=== PATIENT | male | born 1940 | race Caucasian/White ===

== ENCOUNTER 2020-03-10 11:22 | Inpatient (IN) | payer OTHER ==
[~2020-03-10] VITALS: Ht 193 cm; Wt 113.4 kg
--- NOTE | ~2020-03-10 | CON ---
[address] [address] CONSULTATION Name: YOONLINDA Mariann Room: [address] IN .R.#: [id number] Admission: 03/10/20 Attend Phys: Schuyler Kim MD Discharge: Date of : 44 Report #: [id number] THIS REPORT FOR: //name// cc: Kumar Alcantar MD, Anthony MD ~ THIS REPORT FOR: //name// CC: Kumar Vernon DATE OF SERVICE: 03/22/2020 CHIEF COMPLAINT: Followup of postoperative wound to the left lateral foot and right plantar fifth metatarsal styloid. Surgical pathology showed osteomyelitis with clear resection and clear disarticulation margin. He is on parenteral vancomycin 1 gram q.12h. He feels well, good appetite. He is nonweightbearing to the left foot, although he does place some weight to it for transfers. Two surgical shoes have been dispensed. No new labs for review. PHYSICAL EXAMINATION: Incision is well approximated to the left lateral foot with increased red granulation to the postoperative wound. Low-grade inflammation to the hindfoot, which shows interval improvement. No underlying fluctuance or crepitation noted. No signs of acute vascular embarrassment to either foot. The right plantar foot wound has some fibrous slough to the wound bed with some visible tendon fibers. No inflammation or cardinal signs of infection. IMPRESSION: Osteomyelitis with deep tissue infection, status post surgical debridement, type 2 diabetes mellitus/peripheral artery disease. PLAN: Both wounds were cleansed and dressed with Aquacel Ag, ABDs, Kerlix and Rickie wrap. The patient will require some bedside debridement to the right plantar wound. He is awaiting usp placement. By: [id number] [id number] Jacques DPM /nt
[2020-03-10 10:25] LABS: HEMATOCRIT 33.9 % (42.0-52.0); HEMOGLOBIN 11.1 gm/dL (14.0-18.0); MCHC 32.7 g/dL (28.0-37.0); MCV 82.7 fL (80.0-100.0); MPV 7.9 fl. (7.2-11.1); NUCLEATED RBCS 0 /100WBC; PLATELET COUNT* 459 thou/uL (150-400); RDW-CV 14.6 % (10.5-14.5); WBC 21.5 thou/uL (4.0-11.0)
[2020-03-10 10:35] LABS: CALCIUM 8.5 mg/dL (8.5-10.1); CREATININE 1.9 mg/dL (0.6-1.3); POTASSIUM 4.3 mmol/L (3.5-5.1)
[2020-03-10 10:37] LABS: ALBUMIN 2.5 g/dL (3.4-5.0); TOTAL BILIRUBIN 0.5 mg/dL (<0.1-1.0); TOTAL PROTEIN 7.6 g/dL (6.4-8.2)
[2020-03-10 10:50] LABS: ABSOLUTE LYMPHOCYTES 1.3 thou/uL (0.8-5.3); ABSOLUTE MONOCYTES 1.3 thou/uL (0.0-1.2); ABSOLUTE NEUTROPHILS 18.9 thou/uL (1.6-8.1); METAMYELOCYTES 1 %
[2020-03-10 10:52] LABS: PLATELET ESTIMATE INCREASED
[~2020-03-10 11:22] MED LIST: METFORMIN 500500 MG PO; NORCO 5-325 TA1 EACH PO; PROZAC 10 MG CA10 MG PO
[2020-03-10 11:28] VITALS: BP 146/59
[2020-03-10 11:29] LABS: ESR (SEDRATE) 106 mm/hr (0-20)
[2020-03-10] MEDS ORDERED: DRIZALMA SPRINK60 MG PO (11:35)
[2020-03-10] MEDS ORDERED: FUROSEMIDE 40 M40 MG PO (11:35)
[2020-03-10] MEDS ORDERED: AMARYL2 M1 PO (11:35)
[2020-03-10] MEDS ORDERED: EZALLOR SPRINKL10 MG PO (11:36)
[2020-03-10] MEDS ORDERED: CARVEDILOL12.5 MG PO (11:36)
[2020-03-10] MEDS ORDERED: ASA81BEC PO (11:36)
[2020-03-10] MEDS ORDERED: LORCET 5-325 M1 EACH PO (11:37)
[2020-03-10] MEDS ORDERED: ZOFRAN4 MG PO (11:37)
[2020-03-10] MEDS ORDERED: MUPIROCIN1 GM TOP (11:38)
[2020-03-10] MEDS ORDERED: AUGMENTIN 500-1 EACH PO (11:38)
[2020-03-10 13:56] LABS: APTT 36.4 Seconds (25.0-31.3); INR 1.1; PROTIME 11.4 Seconds (9.20-11.50)
--- NOTE | 2020-03-10 17:26 | EKG ---
[place] [address] ELECTROCARDIOGRAM REPORT Name: LINDA NETTLES Room: [place] [address] ADM IN [facility]#: [id number] Admission: 03/10/20 Attend Phys: Schuyler Kim, Discharge: Date of : 44 Date of Service: 03/10/20 1230 Report #: [id number] THIS REPORT FOR: //name// [facility] ED Test Date: 2020-03-10 Test Time: 12:30:36 Pat Name: LINDA NETTLES Department: Room: [facility] Gender: M [employer] Weaver: CYNTHIA : 1940 Requested By: Cuca Martinez Order Number: [id number] MD: Carlos Higuera Measurements Intervals Pierce Rate: 103 P: 100 CO: 190 QRS: 12 QRSD: 97 T: 5 QT: 344 QTc: 451 Interpretive Statements Sinus tachycardia Inferior infarct, old No previous ECG available for comparison Electronically Signed On 03-10-2020 17:26:07 CDT by Carlos Higuera [email or web address] <ELECTRONICALLY SIGNED> By: Carlos Higuera MD, [facility] 03/10/20 1726 1230 1230 Carlos Higuera MD, [facility] /EPI
[2020-03-10 19:40] VITALS: BP 149/64
[2020-03-10 20:30] VITALS: BP 131/48
[2020-03-11 02:36] LABS: GLYCOHEMOGLOBIN (HGB A1C) 7.5 % (4.8-5.6)
[2020-03-11 04:28] LABS: CALCIUM 7.8 mg/dL (8.5-10.1); CREATININE 2.3 mg/dL (0.6-1.3); MAGNESIUM 1.9 mg/dL (1.8-2.4); POTASSIUM 4.1 mmol/L (3.5-5.1)
[2020-03-11 04:31] LABS: HEMATOCRIT 30.3 % (42.0-52.0); HEMOGLOBIN 10.1 gm/dL (14.0-18.0); MCH 27.4 pg (26.0-34.0); MCHC 33.4 g/dL (28.0-37.0); MCV 82.2 fL (80.0-100.0); MPV 7.7 fl. (7.2-11.1); RBC 3.69 mil/uL (4.50-6.00); RDW-CV 14.6 % (10.5-14.5); WBC 18.4 thou/uL (4.0-11.0)
--- NOTE | 2020-03-11 05:35 | NUR ---
PT ARRIVED AROUND 2014. A&O X4. VSS ON RA. PHOTO OF LT FOOT TAKEN. DRESSING DONE BY ER NURSE. PT USES URINAL TO VOID. MEDS GIVEN ORDERED. PAIN MANAGED WITH SCHEDULED HYDROCODONE. MG REPLACED. PT SLEEPING/RESTING QUIETLY THROUGH THE NIGHT. CALL LIGHT WITHIN REACH. WILL CONTINUE TO MONITOR.
[2020-03-11 09:56] VITALS: BP 124/52
[2020-03-11 15:48] VITALS: BP 135/54
--- NOTE | 2020-03-11 16:27 | NUR ---
ASSUMED CARE OF PT AROUND 0730 THIS AM. REFER TO ASSESSMENT. PT GIVEN PRUNE JUICE THIS AM FOR CONSTIPATION. PT OFFERED SCHEDULED SENNA AND PRN MILK OF MAG AND REFUSED STATING THE PRUNE JUICE EFFECTIVE. PT HAD MRI THIS SHIFT. ANTICIPATE SURGERY WITH DR. DIANA TOMORROW. PT GIVEN HYDROCODONE FOR PAIN AND REPORTS EFFECTIVE. NO OTHER CONCERNS AT THIS TIME. CLWR. WCTM.
[2020-03-11 16:47] LABS: URINE BILIRUBIN NEGATIVE (Negative); URINE BLOOD NEGATIVE (Negative); URINE CLARITY CLEAR; URINE COLOR YELLOW; URINE GLUCOSE-RANDOM NEGATIVE (Negative); URINE KETONES NEGATIVE (Negative); URINE LEUKOCYTES-REFLEX NEGATIVE (Negative); URINE NITRITE-REFLEX NEGATIVE (Negative); URINE PROTEIN 1+ (Negative); URINE UROBILINOGEN 0.2 E.U./dl (0.2-1.0)
[2020-03-11 17:03] LABS: URINE POTASSIUM-RANDOM 40.3 mmol/L
[2020-03-11 20:00] VITALS: BP 168/75; BP 172/78
[2020-03-11 23:29] VITALS: BP 172/78
[2020-03-12 05:15] VITALS: BP 142/62
--- NOTE | 2020-03-12 05:23 | NUR ---
PT SLEPT WELL THIS SHIFT AFTER HS MEDS. USING URINAL AT BEDSIDE. DRSG TO TANYA FEET CHANGED AT HS. HS ACCUCHECK 230, INSULIN GIVEN ORDERED. LAC SL IV, ABX GIVEN ORDERED. HAS BEEN NPO SINCE MIDNIGHT FOR DEBRIDEMENT THIS MORNING BY DR FOUNTAIN. AM LAB LACTIC WNL. CARVEDILOL GIVEN PHYSICAL DAMAGE APPRAISER WITH SMALL SIP WATER. CALL LITE IN EASY REACH, BED ALARM ON FOR SAFETY.
[2020-03-12 08:00] VITALS: BP 130/58
--- NOTE | 2020-03-12 09:28 | NUR ---
PT TO OR AT THIS TIME
--- NOTE | 2020-03-12 11:30 | NUR ---
I was called and notified patient had expressed a desire to . I spoke with the patient, and he expressed hopelessness. 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 He talked about how his was his only family member and they didn't have anyone else. He stated that the guns are out of the house. He said he is his 's caregiver, and he can't care for her due to his illness right now, causing more hopelessness. Chen KULKARNI called to do a well check on . Attempted to get telepsych consult preoperatively but unable to complete it before scheduled time of surgery. rn notified to complete 24 hours after anesthesia. Affidavit completed by myself, as well as PACU RNs
--- NOTE | 2020-03-12 14:13 | NUR ---
ASSUMED CARE OF PT AROUND 0730 THIS AM. REFER TO ASSESSMENT. PT NPO THIS AM FOR SURGERY. DR DIANA COMPLETED SURGERY. REFER TO PROCEDURE NOTES. WHEN IN PACU, PT VOICED SUICIDAL IDEAS. PACU NURSES AND PROPELLANT CHARGE ZONE ASSEMBLER TO COMPLETE AFFIDAVITS TO PLACE ON CHART. PT TO HAVE TELE-PSYCH COMPLETED 24 HOURS AFTER SURGERY D/T ANESTHESIA. PT ON 1:1 OBSERVATION FOR SAFETY. BELONGINGS CHECKED IN WITH SECURITY. PT HAS NO C/O PAIN POST OP AT THIS TIME. CLWR. WCTM.
[2020-03-12 15:00] VITALS: BP 116/42
[2020-03-12 20:40] VITALS: BP 132/48
--- NOTE | 2020-03-13 04:40 | NUR ---
ASSUMED CARE AT 1920h, ON NC AT 2LPM AND TOLERATED. SEEN ON BED CALM AND SOME TIMES INAPPROPRIATE. WITH SITTER FOR SI. WITH DRY DRESSING ON BOTH FEET. NO DISTRESS AND NO BLEEDING. FOR TELE PSYCH CONSULT TODAY. CONTINUE MONITORING AND TOWARD GOALS.
[2020-03-13 05:50] LABS: HEMATOCRIT 28.3 % (42.0-52.0); HEMOGLOBIN 9.6 gm/dL (14.0-18.0); MCH 27.4 pg (26.0-34.0); MCHC 33.7 g/dL (28.0-37.0); MCV 81.3 fL (80.0-100.0); MPV 7.7 fl. (7.2-11.1); RBC 3.49 mil/uL (4.50-6.00); RDW-CV 14.9 % (10.5-14.5); WBC 17.6 thou/uL (4.0-11.0)
[2020-03-13 06:06] LABS: CALCIUM 7.6 mg/dL (8.5-10.1); CREATININE 1.9 mg/dL (0.6-1.3); MAGNESIUM 2.3 mg/dL (1.8-2.4); POTASSIUM 4.3 mmol/L (3.5-5.1)
[2020-03-13 08:40] VITALS: BP 155/71
--- NOTE | 2020-03-13 15:51 | NUR ---
CM SPOKE TO THE PT TO DISCUSS HIS HOME SITUATION, AND DISCHARGE PLANNING. PT A&O AND INFORMS THAT HE IS NORMALLY INDEPENDENT, ACTIVE, AND DRIVES. PT RESIDES AT HOME WITH HIS SPOUSE, BUT 'SHE IS NOT IN [facility]'. PT USES A ROLLER WALLKER FOR MOBILITY. PT HAS A HX OF SNF AFTER A SX. PT IS CURRENTLY ON-SERVICE WITH [facility] FOR HH. CM [facility]KE [facility] AND THEY INFORM THAT THE PT WAS 'SCHEDULED TO BE SEEN TODAY, AND WILL NEED ORDERS FOR HH AT D/C TO START HH TODAY WAS THE FIRST SCHEDULED VISIT'. PT CURRENTLY HAS A 1:1 SITTER, HE MADE MULTIPLE SUICIDAL COMMENTS TO NURSING STAFF. PT CURRENTLY AWAITNG TELE PSYCH EVAL. CM WILL REMAIN AVAILABLE TO ASSIST AND FOLLOW NEEDED.
--- NOTE | 2020-03-13 17:20 | NUR ---
PATIENT ALERT AND ORIENTED X 4. VITAL SIGNS STABLE ON ROOM AIR. PATIENT UP WITH STAND BY ASSIST TO THE BATHROOM. IV PATENT AND SALINE LOCKED. ANTIBIOTICS GIVEN PER OCT. PAIN BEING MANAGED WITH PO MEDICATION. DENIES NAUSEA AT THIS TIME. 1:1 SITTER AT BEDSIDE. HOURLY ROUNDS MAINTAINED THROUGHOUT THE SHIFT. CALL LIGHT WITHIN REACH. NURSING WILL CONTINUE TO MONITOR.
[2020-03-13 19:34] VITALS: BP 150/67
--- NOTE | 2020-03-14 04:36 | NUR ---
ASSUMED PATIENT CARE AT 1900. PATIENT ALERT AND ORIENTED TIMES FOUR AT BEGINNING OF SHIFT. SOMEWHAT CONFUSED AND CONFRONTATIONAL WHEN AROUSED THROUGH THE NIGHT. NO COMPLAINTS OF PAIN OR DISCOMFORT NOTED. IV PATENT. 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
[2020-03-14 08:10] VITALS: BP 143/65
--- NOTE | 2020-03-14 12:18 | NUR ---
Nutrition: Pt admitted with Lt foot ulcer, seen for same. Pt is noted to be sometimes inappropriate. Has 1:1 sitter. Wt: 250#. RX: insulin, glimeperide. Behavioral health tray ordered. Labs: BG 177-219, alb 2.5, prealb 5.8, WBC 17.6. RD ordered Ehsan to aid in wound healing. No education given at this time. Consider Mild risk. GOALS: >75% meals/supplements consumed, tight BG control for wound healing.
--- NOTE | 2020-03-14 14:32 | NUR ---
WOUND NURSE: PATIENT SEEN, BUT FOOT WOUNDS NOT ADDRESSED THESE ARE BEING MANAGED BY DR. Angeles FOUNTAIN DPM. PATIENT APPARENTLY TRANSFERED HIMSELF FROM CHAIR TO BED WITHOUT REQUESING NURSIN ASSISTANCE. PATIENT WAS INSTRUCTED TO REQUEST NURSING ASSISTANCE WITH ALL TRANSFERS IN AND OUT OF BED AND TO FOLLOW PHYSICAL THERAPIST'S INSTRUCTIONS PERTAINING TO MOBILITY. PATIENT STATES HE UNDERSTANDS, BUT FOLLOW UP INSTRUCTION WILL BE NECESSARY.
--- NOTE | 2020-03-14 16:10 | NUR ---
CM SPOKE TO THE PT TO DISCUSS DISCHARGE PLANNING NEEDS AND SNF AT D/C. PT STATES 'I DO NOT WANT TO GO TO A HALF-WAY'. DESPITE EDUCATION AND ENCOURAGEMENT, PT CONTINUED TO DECLINE SNF. PT IN AGREEMENT WITH GOING HOME WITH HH AT D/C AND HAD BEEN SETUP WITH [facility] PRIOR TO ADMIT, BUT WILL NEED NEW HH ORDERS FOR HH AT D/C. CM WILL REMAIN AVAILABLE TO ASSIST AND FOLLOW NEEDED.
[2020-03-14 16:20] VITALS: BP 171/70
--- NOTE | 2020-03-14 18:42 | NUR ---
PT AOx4 FORGETFUL AT TIMES. PT RECEIVING IV ANTIBIOTICS AND TOELRATING WELL. WOUND CARE IS MONITORING PT WOUNDS AND DRESSINGS. PT IS NWB TO LLE, WBAT C POSTOP SHOE IN PLACE. PT IS UP WITH ASSIST X2, DOES NOT MAINTAIN WB STATUS. VSS. NO ACUTE EVENTS THIS SHIFT WILL CONTINUE TO MONITOR
[2020-03-14 20:30] VITALS: BP 144/65
--- NOTE | 2020-03-15 07:02 | NUR ---
Oriented x 3 he is forgetful and sometimes withdrawn. He was up to the bedside commode and didn't do well with staying NWB to L foot,dressing is intact. He refused scheduled pain meds. He has slept well.
[2020-03-15 08:00] VITALS: BP 162/71
--- NOTE | 2020-03-15 14:47 | NUR ---
CM INFORMED BY THE HOSPITALIST THAT THE PT WILL NEED IV ABT'S AT D/C. CM SPOKE TO THE PT TO DISUCSS THIS AND HE REQUEST TO DO IV ABT'S AT HOME. PT APPROVES REFERRAL BEING SENT TO [facility]. [facility] RETURNS CALL TO INFORM OF PT'S BENEFITS AND CO-PAY OF $1186/WK FOR BOTH ABT'S, $5900 OOP W/ $87 MET, AND ONLY SUPPLIES WILL BE COVERED AT 100%. CM RELAYED THIS INFO TO PT. PT UPSET AND INFORMS THAT HE IS UNABLE TO AFFORD THIS. PT AGAIN DECLINED SNF AN OPTION FOR PT/OT AND ABT'S. CM INFORMED RN IN-CHARGE OF THE PT OF ALL OF THE ABOVE INFO, AND WILL SPEAK TO THE HOSPITALIST TO DISCUSS OTHER OPTIONS. CM WILL REMAIN AVAILABLE TO ASSIST AND FOLLOW NEEDED.
[2020-03-15 15:17] VITALS: BP 116/65
[2020-03-15 16:08] VITALS: BP 116/65
--- NOTE | 2020-03-15 19:22 | NUR ---
PATIENT RESTIGN IN BED. PATIENT HAD COMPLAINTS OF LEFT FOOT PAIN X 1 TODAY. PATIENT SEEN BY DR FOUNTAIN THIS AFTERNOON AND WOUND DRESSINGS CHANGED TO BILATERAL FEET. PATIENT HAD PICC LINE PLACED THIS AFTERNOON FOR IV ANTIBIOTICS AT DISCHARGE. PATIENT HAS GOOD APPETITE. PATIENT DENIES ANY NEEDS AT THIS TIME.
[2020-03-15 19:30] VITALS: BP 139/56
--- NOTE | 2020-03-16 06:58 | NUR ---
Pt alert and oriented. VSS on RA Meds given per emar. Pt refused pain meds this shift. Pt denies pain meds. Pt voiced that he was ok now becuase Dr Jacques told him that wounds were healing. Lantus given this shift as ordered. Pt slept well this shift. Call light within reach. Hourly roundings made. Anticipated dc today. Will continue to monitor.
[2020-03-16 07:40] VITALS: BP 159/71
--- NOTE | 2020-03-16 08:40 | PATH ---
[address] [address] PATHOLOGY RPT PROCEDURE Name: LINDA NETTLES Room: [address] IN ..#: [id number] Admission: 03/10/20 Date of : 44 Discharge: Report #: [id number] Path Case #: [id number] [facility] Accession Number: [id number] . 01 Material submitted: . foot - LEFT 5TH METARSAL. Modifiers: left, fifth . 01 Clinical history: . Foot ulcer and pain . 02 Diagnosis: Left fifth metatarsal: - Benign osteocartilaginous segment with acute inflammation of attached soft tissues and prominent osteomyelitis near "smooth/flat" articular end, with opposite articular end free of osteomyelitis. See comment. (NAEL:cory; 03/14/2020) S 03/14/2020 1346 Local . 02 Comment: Osteomyelitis is identified near an articular surface in A1, without traversing it. (NAEL:cory; 03/14/2020) . 02 Electronically signed: . Rafiq Bess MD, Pathologist NPI- [id number] . 01 Gross description: . The specimen is received in formalin, labeled "Linda Nettles, Nick fifth metatarsal" and consists of a segment of bone measuring 8.2 x 1.8 x 1.4 cm. One aspect is smooth and flat with a possible partial articular surface, while the other is a convex smooth articular surface. Sectioning reveals yellow-whitten cut surfaces. A full-thickness longitudinal section is submitted from the flat aspect to the convex aspect in A1-A4 following decalcification. (SDY; 03/13/2020) SYU/SYU 03/14/2020 1344 Local . 02 Pathologist provided ICD-10: M79.9, M86.172 . 02 CPT . 229098, 140322 Specimen Comment: A courtesy copy of this report has been sent to [phone] Specimen Comment: Report sent to Specimen Comment: A duplicate report has been generated due to demographic updates. Performed at: [address] [place] [address] PATHOLOGY RPT PROCEDURE Name: LINDA NETTLES Room: [address] IN .R.#: [id number] Admission: 03/10/20 Date of : 44 Discharge: Report #: [id number] Path Case #: [id number] [facility] [address], [place], [place] [id number] MD Frank Muro MD Phone: [phone] Performed at: [address] [facility] [address] [place] [id number] MD Rafiq Bess MD Phone: [phone]
[2020-03-16 16:23] VITALS: BP 154/65
--- NOTE | 2020-03-16 17:48 | NUR ---
PATIENT RESTING IN BED. PATIENT DENIES ANY PAIN. PATIENT HAS FAIR APPETITE. PATIENT IS UP TO COMMODE WITH STANDBY ASSIST. PATIENT DISCHARGE IS PENDING ANTIBIOTICS AND PLACEMENT, PATIENT STATES UNDERSTANDING TO TREATMENT. PATIENT WANTS TO GO HOME. PATIENT DENIES ANY NEEDS AT THIS TIME. CALL LIGHT WITHIN REACH.
[2020-03-16 20:00] VITALS: BP 163/69
[2020-03-17 04:00] VITALS: BP 152/65
[2020-03-17 07:50] VITALS: BP 161/66
[2020-03-17 15:30] VITALS: BP 176/74
[2020-03-17] MEDS ORDERED: DAPTOMYCIN500 MG IVPB (15:30)
[2020-03-17] MEDS ORDERED: ERTAPENEM1 GM IVPB (15:30)
[2020-03-17] MEDS ORDERED: LANTUS SUBQ (15:33)
[2020-03-17] MEDS ORDERED: HUMALOG100 UNIT/1 SUBQ (15:36)
--- NOTE | 2020-03-17 15:49 | NUR ---
CM INFORMED THAT THE PT HAS BEEN MEDICALLY ACCEPTED BY THE PHYSICIAN TO THE INPT REHAB UNIT. WET CHAR CONVEYOR TENDER IN THE PROCESS OF OBTAIN INSURANCE AUTH. CM INFORMED THE PT OF THIS AND HE IS IN AGREEMENT. CM WILL REMAIN AVAILABLE TO ASSIST AND FOLLOW NEEDED.
--- NOTE | 2020-03-17 18:03 | NUR ---
PATIENT DRESSINGS CHANGED TO TANYA FEET BY DR. FOUNTAIN. SCHED IV ABX INFUSED ORDERED. HYDROCODONE GIVEN X 1 FOR FOOT PAIN THIS SHIFT ORDERED. AWAITING INSURANCE AUTH FOR REHAB.
[2020-03-17 20:20] VITALS: BP 165/66
--- NOTE | 2020-03-18 04:29 | NUR ---
PATIENT HAS REMAINED ALERT AND ORIENTED X 4. CALLS FOR ASSIST. BEDREST TONIGHT. USING URINAL. NO BM'S THIS SHIFT. ANTIBIOTICS PER PICC. VITAL SIGNS STABLE. DRESSING BILAT FEET CLEAN AND DRY, ELEVATED WITH PILLOWS. CONTINUE TO MONITOR.
[2020-03-18 08:10] VITALS: BP 176/76
[2020-03-18 16:00] VITALS: BP 178/83
--- NOTE | 2020-03-18 17:26 | NUR ---
PATIENT RESTING IN BED. PATIENT HAS HAD FLAT AFFECT TODAY. PATIENT HAS SLEPT ON AND OFF THROUGHOUT DAY. PATIENT HAS POOR APPETITE. PATIENT DENIES ANY PAIN. DRESSING TO BILATERAL FEET C/D/I. PATIENT DENIES ANY NEEDS AT THIS TIME. CALL LIGHT WITHIN REACH.
[2020-03-18 22:00] VITALS: BP 148/60
--- NOTE | 2020-03-19 07:04 | NUR ---
PATIENT HAS RESTED WELL THROUGHOUT THE NIGHT. VSS ON RA. PAIN CONTROLLED VERY WELL. MEDICATIONS GIVEN ORDERED AND CHARTED. DRESSINGS TO BILATERAL LOWER EXTREMITIES ARE C/D/I. RIGHT UPPER ARM PICC-SL. IV IN RIGHT FOREARM-SL. IV ABT'S GIVEN WITHOUT ANY ADVERSE SIDE EFFECTS NOTED. PATIENT INSTRUCTED TO USE CALL LIGHT WHEN NEEDING ASSISTANCE. HOURLY ROUNDS MADE. WILL CONTINUE WITH PLAN OF CARE AND NURSING TO MONITOR.
[2020-03-19 07:20] VITALS: BP 174/81
--- NOTE | 2020-03-19 16:51 | NUR ---
PT REMAINED ALERT AND ORIENTED. PT RESTING IN BED. PT DENIED ANY PAIN. DRESSING CHANGED AND PICTURES. TAKEN. FALL RISK PRECAUTIONS IN PLACE. HOURLY ROUNDING COMPLETED. WILL CONTINUE TO MONITOR.
[2020-03-19 16:57] VITALS: BP 160/67
[2020-03-19 20:50] VITALS: BP 151/53
--- NOTE | 2020-03-20 07:59 | NUR ---
PATIENT HAS SLEPT WELL THROUGHOUT MOST OF THE NIGHT. VSS ON RA. PAIN WELL CONTROLLED. MEDICATIONS GIVEN ORDERED AND CHARTED. PATIENT HAS BEEN UP WITH SBA TO THE BATHROOM PER PATIENT REQUEST. DRESSINGT TO BILATERAL LOWER EXTREMITIES ARE C/D/I. IV IN RIGHT FOREARM-SL. RIGHT UPPER ARM PICC-SL. IV ABT'S GIVEN WITHOUT ANY ADVERSE SIDE EFFECTS NOTED. HOURLY ROUNDS MADE. WILL CONTINUE WITH PLAN OF CARE AND NURSING TO MONITOR.
[2020-03-20 08:25] VITALS: BP 169/76
[2020-03-20 16:02] VITALS: BP 153/68
--- NOTE | 2020-03-20 18:15 | NUR ---
Pt AOx4 forgetful and flat affect. Pt ia ambulatory, does not maintain weight bearing status per orders. Pt insists he can walk with walker. Dressings to bilat feet are intact and dry. No c/o pain this shift, patient has been refusing scheduled norco. IV antibiotics given and tolerated well. Pt awaiting tx to rehab. Hourly rounding complete. Will continue to monitor.
[2020-03-20 23:20] VITALS: BP 163/72
[2020-03-21 07:50] VITALS: BP 168/75
--- NOTE | 2020-03-21 08:21 | NUR ---
PATIENT HAS SLEPT WELL THROUGHOUT THE NIGHT. VSS ON RA. NO C/O PAIN. MEDICATIONS GIVEN ORDERED AND CHARTED. DRESSING TO BILATERAL LOWER EXTREMITIES ARE C/D/I. PATIENT UP WITH SBA WITH THE WALKER. IV IN RIGHT FOREARM-SL. RIGHT UPPER PICC LINE-SL. IV ABT'S GIVEN WITHOUT ANY ADVERSE SIDE EFFECTS NOTED. PATIENT INSTRUCTED TO USE CALL LIGHT WHEN NEEDING ASSISTANCE. HOURLY ROUNDS MADE. WILL CONTINUE WITH PLAN OF CARE AND NURSING TO MONITOR.
--- NOTE | 2020-03-21 13:45 | NUR ---
UNABLE TO TREAT PT DUE TO SCHEDULING CONFLICT
[2020-03-21 13:55] LABS: CALCIUM 7.9 mg/dL (8.5-10.1); CREATININE 1.6 mg/dL (0.6-1.3); MAGNESIUM 1.8 mg/dL (1.8-2.4); POTASSIUM 4.2 mmol/L (3.5-5.1)
[2020-03-21] MEDS ORDERED: AUGMENTIN 875-1 EACH PO (14:33)
[2020-03-21] MEDS ORDERED: VANCOMYCIN IVPB (14:33)
[2020-03-21 16:06] VITALS: BP 170/75
--- NOTE | 2020-03-21 16:19 | NUR ---
PATIENT UP TO WHEELCHAIR WITH THERAPY THIS AFTERNOON. HYDROCODONE GIVEN X 1 THIS SHIFT. DRESSINGS REMAIN INTACT TO RIGHT AND LEFT FOOT, WILL DISCUSS WITH DR. FOUNTAIN ABOUT REDRESSING. RIGHT UPPER ARM PICC SL, SCHED ABX INFUSED ORDERED. AUGMENTIN ORDERED TO START TODAY. PATIENT STATED HE WAS GETTING FRUSTRATED ABOUT DECISIONS FOR HIS DISCHARGE.
--- NOTE | 2020-03-21 16:22 | NUR ---
CM SENT REFERRAL TO [facility], P[facility]O AT [facility] AND CELESTINE [facility]OWN W/CELESTINE CHAVES DECLINE D/T BEING OUT OF NETWORK W/INSUR ANNEL AT [facility] AND [facility] CONFIRMED RECEIPT AND ARE REVIEWING
[2020-03-21 20:00] VITALS: BP 172/75
[2020-03-22] VITALS: BP 159/82
[2020-03-22 08:02] VITALS: BP 172/75
--- NOTE | 2020-03-22 13:10 | CON ---
[address] [address] CONSULTATION Name: NETTLESLINDA Waite Room: [address] IN .R.#: [id number] Admission: 03/10/20 Attend Phys: Schuyler Kim MD Discharge: Date of : 44 Report #: [id number] THIS REPORT FOR: //name// cc: Kumar Alcantar MD, Anthony MD ~ THIS REPORT FOR: //name// CC: Kumar Vernon DATE OF SERVICE: 03/17/2020 CHIEF COMPLAINT: Osteomyelitis, left fifth metatarsal, status post ray resection. Surgical pathology showed abundant osteomyelitis at the proximal aspect of the fifth metatarsal with clear distal margin. Surgical bone and tissue cultures grew Pasteurella, Enterococcus and Bacteroides. Anticipate placement to skilled floor tomorrow, he is on parenteral vancomycin and meropenem. He relates low-grade foot pain, he has remained nonweightbearing to the left foot. No new labs for review. PHYSICAL EXAMINATION: There is decreased inflammation to the left lateral foot with intact sutures. The proximal surgical wound has pale/yellowish fibronecrotic tissue to the wound bed with exposed adjacent fourth metatarsal. The bone appears hard and viable with no signs of lysis or necrosis. There is no underlying fluctuance or crepitation. The foot is warm with no signs of acute vascular embarrassment. The right plantar foot wound is stable with fibronecrotic tissue to the wound bed with no inflammation or interval enlargement. IMPRESSION: Osteomyelitis with polymicrobial foot infection, left foot, type 2 diabetes mellitus, and peripheral artery disease. PLAN: The wounds were cleansed, dried and redressed with ABD, Kerlix and Rickie. I will follow the patient when he is transferred to the rehabilitation floor. <ELECTRONICALLY SIGNED> By: Jerad Jacques DPM 03/22/20 1310 1611 1953Dshanon Jacques DPM /nt
--- NOTE | 2020-03-22 13:10 | OP ---
[address] [address] OPERATIVE REPORT Name: LINDA NETTLES Room: [address] IN ..#: [id number] Admission: 03/10/20 Attend Phys: Schuyler Kim MD Discharge: Date of : 44 Report #: [id number] THIS REPORT FOR: //name// cc: Kumar Alcantar MD, Anthony MD ~ THIS REPORT FOR: //name// CC: Kumar Vernon SURGEON: Jerad Jacques DPM PREOPERATIVE DIAGNOSES: 1. Ulceration with deep tissue infection and possible osteomyelitis, left plantar fifth metatarsal styloid. 2. Ulceration, right plantar fifth metatarsal styloid. ANESTHESIA: General LMA. INJECTABLES: A 30 mL of 0.5% Marcaine plain to the left foot. HEMOSTASIS: Left ankle pneumatic tourniquet at 275 mmHg. SUTURES: 3-0 nylon. SPECIMENS: Left fifth metatarsal and left fifth toe. CULTURES: 1. Bone, left proximal fifth metatarsal, aerobic/anaerobic. 2. Soft tissue, left foot, aerobic/anaerobic. ESTIMATED BLOOD LOSS: Roughly 10 mL. COMPLICATIONS: None. DESCRIPTION OF PROCEDURE: The patient was brought to the OR and general LMA anesthesia administered. He was left on his hospital bed for the procedure. A local anesthetic block was given to the left foot proximal to the plantar foot wound. Both feet were prepped and draped aseptically. The right foot was exsanguinated with an Esmarch and a #10 blade was used to create a curved linear incision over the right distal fifth metatarsal extending to the mid shaft of the fifth metatarsal and then dorsally towards the fourth metatarsal base. There is extensive tunneling from the plantar wound towards the fourth metatarsal that measured roughly 8 cm. There was expressible purulent drainage from the wound. Layered anatomic dissection utilized and the skin flap was reflected off the fifth metatarsal, and there was [place] [address] OPERATIVE REPORT Name: LINDA NETTLES Room: [address] IN [facility].#: [id number] Admission: 03/10/20 Attend Phys: Schuyler Kim MD Discharge: Date of : 44 Report #: [id number] the entire fifth metatarsal shaft. The proximal fifth metatarsal styloid region was soft and discolored. There was liquefied necrotic tissue all along the fifth metatarsal extending just proximal to the MTP joint. The purulent and necrotic tissue extended circumferentially around the fifth metatarsal towards the proximal fourth metatarsal. I thoroughly debrided the tendons and soft tissue from the area, and I disarticulated the fifth metatarsal from the cuboid articulation. A portion of bone from the fifth metatarsal styloid was sent for aerobic and anaerobic bone cultures and the remaining fifth metatarsal was sent for pathology. A patient accounting representative portion of soft tissue was sent for aerobic and anaerobic soft tissue culture. I thoroughly debrided the surgical wound of as much necrotic tissue as possible. Electrocauterization was used for hemostasis. I resected redundant skin margins to facilitate some wound closure. The wound was flushed with 1 liter of sterile saline and dried. The distal surgical incision was closed with 3-0 nylon in simple interrupted fashion. The proximal wound was left open and packed with Aquacel Ag along the space of the fifth metatarsal previously occupied. The foot was cleansed and dried and dressed with fluffs, ABDs, Kerlix and Rickie bandage. The tourniquet was deflated with no bleeding through the bandage with immediate digital capillary refill. At this point, I performed an excisional ulcer debridement to the right plantar fifth metatarsal styloid wound with a fresh #10 blade. I excised subcutaneous tissue and hypertrophic wound margins. Electrocautery was utilized for hemostasis. The wound was flushed with saline and packed with Aquacel Ag and dressed with fluffs, ABD and Kerlix and Rickie bandage. The patient left the OR with no pain or complications noted. <ELECTRONICALLY SIGNED> By: Jerad Jacques DPM 03/22/20 1310 1223 [id number] Jacques DPM /ward
--- NOTE | 2020-03-22 13:10 | CON ---
[address] [address] CONSULTATION Name: NETTLESLINDA Waite Room: [address] IN .R.#: [id number] Admission: 03/10/20 Attend Phys: Schuyler Kim MD Discharge: Date of : 44 Report #: [id number] THIS REPORT FOR: //name// cc: Kumar Alcantar MD, Anthony MD ~ THIS REPORT FOR: //name// CC: Kumar Vernon DATE OF SERVICE: 03/13/2020 CHIEF COMPLAINT AND HISTORY OF PRESENT ILLNESS: Postoperative day #1 for left total fifth ray resection for osteomyelitis and deep tissue infection. He is currently on parenteral Zosyn with good tolerance. He has polymicrobial growth with Pasteurella multocida and gram-positive cocci with pending ID. He relates moderate pain of the left foot and he stood and ambulated on the foot against medical advice. His weightbearing status is nonweightbearing. I reviewed Vascular Surgery's note. He may require lower extremity revascularization if poor postoperative wound healing. Surgical pathology is pending. LABORATORY DATA: WBC 17.6, RBC 3.49, hemoglobin 9.6, hematocrit 28.3, platelets 508. BUN 27, creatinine 1.9, glucose 177. PHYSICAL EXAMINATION: Temperature 97.8, pulse 87, respirations 18, blood pressure 155/71. The distal incision is well coapted with sutures, proximal aspect remains open and packed with Aquacel Ag. The inflammation is decreased, no signs of acute vascular embarrassment. Sanguinous drainage on his bandage, no popliteal adenopathy to left leg. Right foot wound stable with a mixture of granulation and fibrotic slough. IMPRESSION: Osteomyelitis with deep tissue infection status post left fifth ray resection and bilateral plantar foot wound debridement. PLAN: The wound was cleansed and repacked with Aquacel Ag and covered with ABDs, Kerlix, and Rickie bandage. The patient is to remain strictly nonweightbearing to the foot. I ordered physical therapy. May require revascularization pending clinical course. <ELECTRONICALLY SIGNED> By: Jerad Jacques DPM 03/22/20 1310 1856 12Jerad Jacques DPM /nt
--- NOTE | 2020-03-22 13:10 | CON ---
[address] [address] CONSULTATION Name: YOONLINDA Mariann Room: [address] IN ..#: [id number] Admission: 03/10/20 Attend Phys: Schuyler Kim MD Discharge: Date of : 44 Report #: [id number] THIS REPORT FOR: //name// cc: Kumar Alcantar MD, Anthony MD ~ THIS REPORT FOR: //name// CC: Kumar Vernon DATE OF SERVICE: 03/15/2020 CHIEF COMPLAINT: Status post left total fifth ray resection for osteomyelitis. HISTORY: He is on parenteral meropenem with good tolerance. Surgical cultures grew Pasteurella multocida, and he admits to having 2 cats as pets. Planned PICC placement today and likely discharged to home tomorrow. He denies foot pain, he is able to ambulate, nonweightbearing to the left foot with a walker and knee scooter. No new labs for review. PHYSICAL EXAMINATION: Inflammation is decreased to the left lateral foot with coapted incision and no signs of acute vascular embarrassment. The proximal open surgical wound has some fibronecrotic tissue and slough, but no active bleeding. Overall, clinically improved with resolving cellulitis. Right foot has a large plantar ulcer at the fifth metatarsal styloid with no inflammation or clinical infection. IMPRESSION: Osteomyelitis, left fifth metatarsal; ulcer, right plantar foot; type 2 diabetes mellitus, peripheral arterial disease. PLAN: The wounds were cleansed and redressed with Aquacel Ag, ABDs, Kerlix and Rickie bandages. I will follow up with the patient next Friday at [facility]. <ELECTRONICALLY SIGNED> By: Jerad Jacques DPM 03/22/20 1310 1548 1656Jerad Jacques DPM /nt
--- NOTE | 2020-03-22 13:10 | CON ---
[address] [address] CONSULTATION Name: LINDA NETTLES Room: [address] IN .R.#: [id number] Admission: 03/10/20 Attend Phys: Schuyler Kim MD Discharge: Date of : 42 Report #: [id number] THIS REPORT FOR: //name// cc: Kumar Alcantar MD, Anthony MD ~ THIS REPORT FOR: //name// CC: Kumar Vernon DATE OF SERVICE: 03/14/2020 CHIEF COMPLAINT: Status post left total fifth ray resection for osteomyelitis and deep tissue infection. Surgical cultures growing Enterococcus raffinosus and Pasteurella multocida. He is on parenteral Zosyn. He relates a substantial decrease in foot pain. He had physical therapy today and was able to remain nonweightbearing to the left foot with the walker. Anatomic pathology is pending. No labs drawn today. PHYSICAL EXAMINATION: VITAL SIGNS: Temperature 100.7, pulse 85, respirations 16, and blood pressure 143/65. EXTREMITIES: Inspection of the left foot reveals a substantial decrease in inflammation since yesterday. There is low-grade inflammation to the proximal aspect of the surgical wound, and the distal inflammation has resolved. The sutures are intact with no dehiscence or necrosis. The proximal surgical wound, that is open packed, has no active bleeding and no underlying fluctuance or crepitation. The foot is warm with no pallor, cyanosis, or signs of acute vascular embarrassment. The right foot wound is stable with no active bleeding and measures roughly 4 x 4 x 2 cm. There is no palpable or visible bone or inflammation. IMPRESSION: Osteomyelitis, diabetic foot wounds. PLAN: The left open wound was debrided with scissors and forceps to remove some subcutaneous tissue from the wound bed. Scant bleeding was stopped with pressure. The wound was cleansed, dried, and packed with Aquacel Ag and covered with 4 x 4s, ABDs, Kerlix, and Rickie bandage. The right foot wound was not debrided and was cleansed and packed with Aquacel Ag and covered with 4 x 4s, Kerlix, and Rickie. The patient may ambulate on the right foot in a surgical shoe, [place] [address] CONSULTATION Name: LINDA NETTLES Room: [address]#: [id number] Admission: 03/10/20 Attend Phys: Schuyler Kim MD Discharge: Date of : 42 Report #: [id number] but is to completely offload the left foot. The patient desires to be discharged to home as opposed to a [facility] facility. <ELECTRONICALLY SIGNED> By: Jerad Jacques DPM 03/22/20 1310 1734 1747Jerad Jacques DPM /ward
--- NOTE | 2020-03-22 13:10 | CON ---
[address] [address] CONSULTATION Name: LINDA NETTLES Room: [address] IN ..#: [id number] Admission: 03/10/20 Attend Phys: Schuyler Kim MD Discharge: Date of : 42 Report #: [id number] THIS REPORT FOR: //name// cc: Kumar Alcantar MD, Anthony MD ~ THIS REPORT FOR: //name// CC: Kumar Vernon DATE OF SERVICE: 03/11/2020 ADMISSION DIAGNOSIS: Left diabetic foot ulceration with cellulitis and deep tissue infection. HISTORY OF PRESENT ILLNESS: A 79-year-old male admitted from the ER as a direct referral from the wound care center yesterday. He has worsening infection to the left plantar foot with increased inflammation consistent with increased inflammation, pain, and swelling consistent with cellulitis. He states he first noticed the wound roughly 1 week ago, but admits it may have been present longer since he does not routinely check his feet. He has a wound to the left plantar foot that he was unaware of. He was placed on Augmentin 4 days ago by his PCP with no improvement. He denies fever or chills (though he feels a little under the weather). He relates a history of poorly controlled blood glucose levels. He typically wears sandals, admits to some barefoot ambulation in his home. He is unaware of stepping on any foreign objects or recent injury. 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 He is on parenteral Zosyn with good tolerance. Foot radiographs show soft tissue defect over the base of the fifth metatarsal with no óscar osteolysis. Arterial Doppler of both legs shows substantial infrapopliteal disease suggestive of a more proximal occlusion and the distal femoral and popliteal arteries. 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 LABORATORY DATA: WBC 18.4, RBC 3.69, hemoglobin 10.1, hematocrit 30.3, platelets 439. ESR 106. BUN 26, creatinine 2.3, glucose 169, albumin 2.5, hemoglobin A1c 7.5. PHYSICAL EXAMINATION: VITAL SIGNS: Temperature 98.2, pulse 86, respirations 16, blood pressure 124/52. EXTREMITIES: There is a deep penetrating diabetic malperforans ulceration to the left plantar fifth metatarsal styloid. The wound measures roughly 3 cm in diameter and tracks 3.0 cm, 3.5 cm dorsally. There is yellow/[place] [address] CONSULTATION Name: LINDA NETTLES Room: [address] IN ..#: [id number] Admission: 03/10/20 Attend Phys: Schuyler Kim MD Discharge: Date of : 42 Report #: [id number] fibronecrotic tissue to the wound bed with palpable bone, but is not visible. There is advanced inflammation surrounding the area extending to the dorsal lateral foot and extending up the lateral lower leg consistent with cellulitis. I am unable to express any purulence from the wound. The area is moderately painful to palpation. Negative Homans' or Love sign to either leg. I cannot detect any left popliteal adenopathy. Left foot has a deep penetrating malperforans ulceration to the plantar fifth metatarsal region up to the plantar fifth metatarsal styloid that measures 2.5 cm diameter. The wound has yellow fibronecrotic tissue with no inflammation to the area. I am unable to probe bone, there is no tunneling present. Slight undermining around the wound periphery. He has faintly palpable posterior tibial pulses. No pallor or cyanosis. IMPRESSION: Diabetic malperforans ulcerations to both feet, deep tissue infection to left foot. PLAN: I performed an excisional ulcer debridement to the left plantar foot wound with scissors and forceps to remove some fibronecrotic subcutaneous tissue. Both wounds were cleansed, dried and packed with Aquacel Ag. Right foot was dressed with 4 x 4, and Kerlix gauze. I ordered a stat MRI without contrast to the left foot. I plan on taking the patient to the OR tomorrow for surgical debridement of both wounds, possible bone resection of the proximal left fifth metatarsal pending MRI and surgical findings. I ordered x-ray of the right foot. <ELECTRONICALLY SIGNED> By: Jerad Jacques DPM 03/22/20 1310 1211 1232Dshanon Jacques DPM /nt
[2020-03-22 16:00] VITALS: BP 165/74
[2020-03-22 20:00] VITALS: BP 162/75
--- NOTE | 2020-03-23 03:51 | NUR ---
PATIENT SLEPT WELL DURING THIS SHIFT. PT VOIDS YELLOW URINE PER URINAL. PT WITH 2100 BLOOD SUGAR AT 166; LANTUS 10 UNITS GIVEN. PT WITH RT UPPER ARM PICC LINE; PATENT. PT REFUSING SCHEDULED VICODEN. DSGS C/D/I. PT DENIES NEEDS AT THIS TIME. FREQUENTLY USED ITEMS AND CALL LIGHT WITHIN REACH. SIDERAILS UPX2 AND BED ALARM ON. WILL CONTINUE TO MONITOR.
[2020-03-23 07:55] VITALS: BP 174/77
[2020-03-23 12:00] VITALS: BP 116/65
[2020-03-23] MEDS ORDERED: CYMBALTA60 MG PO (13:10)
[2020-03-23] MEDS ORDERED: DAPTOMYCIN500 MG IV (13:11)
[2020-03-23] MEDS ORDERED: LIPITOR 10 MG10 M1 PO (13:11)
--- NOTE | 2020-03-23 13:46 | NUR ---
PT TRANSFERRING TO [facility], PT APPROVED, SPOUSE, FABRICIO, NOTIFIED BY CM WHILE IN PT'S ROOM. [facility] SCHEDULED EXPRESS TRANSPORTATION FOR 1700. [facility] INFORMED BY CM THE PT'S MED WAS SWITCHED FROM VANCOMYCIN TO DAPTOMYCIN. [facility] AGREED TO MED CHANGE. PT RM# AT [facility] IS E3. PT NURSE WAS PROVIDED NUMBER TO CALL REPORT TO "[facility]" @ [phone]. PT'S NURSE IS AGREEABLE TO PLAN. CM FAXED ORDERS TO [phone].
[2020-03-23 16:00] VITALS: BP 176/77
--- NOTE | 2020-03-23 16:23 | NUR ---
WOUND NURSE: ASSISTED NURSE RODRICK WITH DRESSING CHANGE TO BILATERAL FEET. RODRICK WILL DOCUMENT DETAILS OF DRESSING CHANGE. PATIENT DISCHARGING TODAY.
--- NOTE | 2020-03-23 18:00 | NUR ---
PATIENT DISCHARGED TO [facility]. REPORT CALLED TO CARTER. COPY OF CHART AND DISCHARGE PAPERS GIVEN TO TRANSPORTER. ALL BELONGINGS PACKED AND SENT WITH PATIENT. PATIENT HAD NO CLOTHES TO GET DRESSED. WOUND REDRESSED AND PICTURES TO CHART. PATIENT DENIES ANY FURTHER NEEDS. PATIENT LEFT BY WHEELCHAIR VAN AT THIS TIME.
== END 2020-03-23 18:00 | DRG 853 ==
LOC: M.ORTHSURG 12:29 → M.TBA-ER 12:29 → M.ORTHSURG 20:15
PROVIDERS: Family Medicine; ADMIT Internal Medicine; ATTEND Internal Medicine
PROC: 0Y6Y0Z0 Detachment at Left 5th Toe, Complete, Open Approach (ICD-10-PCS; principal; 2020-03-10)
PROC: 0JBN0ZZ Excision of Right Lower Leg Subcutaneous Tissue and Fascia, Open Approach (ICD-10-PCS; principal; 2020-03-10)
PROC: 05HY33Z Insertion of Infusion Device into Upper Vein, Percutaneous Approach (ICD-10-PCS; 2020-03-15)
DX: A41.9 Sepsis, unspecified organism (principal); N17.0 Acute kidney failure with tubular necrosis; M86.8X7 Other osteomyelitis, ankle and foot; L03.116 Cellulitis of left lower limb; L02.612 Cutaneous abscess of left foot; E11.621 Type 2 diabetes mellitus with foot ulcer; E11.69 Type 2 diabetes mellitus with other specified complication; E11.51 Type 2 diabetes mellitus with diabetic peripheral angiopathy without gangrene; E11.40 Type 2 diabetes mellitus with diabetic neuropathy, unspecified; E66.9 Obesity, unspecified; E11.65 Type 2 diabetes mellitus with hyperglycemia; I87.8 Other specified disorders of veins; F41.1 Generalized anxiety disorder; Z20.828 Contact with and (suspected) exposure to other viral communicable diseases; Z68.30 Body mass index [BMI] 30.0-30.9, adult; Z95.2 Presence of prosthetic heart valve; Z95.1 Presence of aortocoronary bypass graft; Z79.899 Other long term (current) drug therapy

== ENCOUNTER → 2020-03-29 | Outpatient (CLI) | payer OTHER ==
[~2020-03-29] MED LIST changes: +AMARYL2 M1 PO; +ASA81BEC PO; +AUGMENTIN 500-1 EACH PO; +AUGMENTIN 875-1 EACH PO; +CARVEDILOL12.5 MG PO; +CYMBALTA60 MG PO; +DAPTOMYCIN500 MG IV; +DAPTOMYCIN500 MG IVPB; +DRIZALMA SPRINK60 MG PO; +ERTAPENEM1 GM IVPB; +EZALLOR SPRINKL10 MG PO; +FUROSEMIDE 40 M40 MG PO; +HUMALOG100 UNIT/1 SUBQ; +LANTUS SUBQ; +LIPITOR 10 MG10 M1 PO; +LORCET 5-325 M1 EACH PO; +MUPIROCIN1 GM TOP; +VANCOMYCIN IVPB; +ZOFRAN4 MG PO
== END ==
LOC: M.WC 04:50
PROVIDERS: ATTEND Podiatrist Foot & Ankle Surgery
DX: T81.89XA Other complications of procedures, not elsewhere classified, initial encounter (principal); E11.621 Type 2 diabetes mellitus with foot ulcer; L97.422 Non-pressure chronic ulcer of left heel and midfoot with fat layer exposed; L97.412 Non-pressure chronic ulcer of right heel and midfoot with fat layer exposed; L03.116 Cellulitis of left lower limb; L84 Corns and callosities; E11.40 Type 2 diabetes mellitus with diabetic neuropathy, unspecified; I25.10 Atherosclerotic heart disease of native coronary artery without angina pectoris; I50.9 Heart failure, unspecified; K21.9 Gastro-esophageal reflux disease without esophagitis; F32.9 Major depressive disorder, single episode, unspecified; Z95.5 Presence of coronary angioplasty implant and graft; Z79.4 Long term (current) use of insulin; Y92.238 Other place in hospital as the place of occurrence of the external cause; Y83.8 Other surgical procedures as the cause of abnormal reaction of the patient, or of later complication, without mention of misadventure at the time of the procedure

== ENCOUNTER → 2020-04-05 | Outpatient (CLI) | payer OTHER | LOC: M.WC 04:31 | PROVIDERS: ATTEND Podiatrist Foot & Ankle Surgery | DX: T81.89XD Other complications of procedures, not elsewhere classified, subsequent encounter (principal); E11.621 Type 2 diabetes mellitus with foot ulcer; L97.512 Non-pressure chronic ulcer of other part of right foot with fat layer exposed; L97.421 Non-pressure chronic ulcer of left heel and midfoot limited to breakdown of skin; L03.116 Cellulitis of left lower limb; L84 Corns and callosities; E11.40 Type 2 diabetes mellitus with diabetic neuropathy, unspecified; I25.10 Atherosclerotic heart disease of native coronary artery without angina pectoris; I50.9 Heart failure, unspecified; K21.9 Gastro-esophageal reflux disease without esophagitis; F32.9 Major depressive disorder, single episode, unspecified; Z95.5 Presence of coronary angioplasty implant and graft; Z79.4 Long term (current) use of insulin; Y83.8 Other surgical procedures as the cause of abnormal reaction of the patient, or of later complication, without mention of misadventure at the time of the procedure ==

== ENCOUNTER 2020-04-10 05:57 | Inpatient (IN) | payer OTHER ==
[~2020-04-10] VITALS: Ht 182.9 cm; Wt 102.1 kg
--- NOTE | ~2020-04-10 | PROC ---
[address] [address] PROCEDURE REPORT Name: LINDA NETTLES Room: [address] MGrantRGrant#: [id number] Admission: 04/10/20 Attend Phys: Cierra Dowd MD Discharge: Date of : 42 Report #: [id number] THIS REPORT FOR: //name// cc: Kumar Alcantar MD, Anthony MD ~ THIS REPORT FOR: //name// For GI report, please see the Provation report in Perceptive 7 content. By: 0655Medical Records Staff KOFI /JOSE ANGEL
[~2020-04-10 05:57] MED LIST changes: -LIPITOR 10 MG10 M1 PO
[2020-04-10 05:59] VITALS: BP 146/73
[2020-04-10 06:14] LABS: ABSOLUTE BASOPHILS 0.2 thou/uL (0.0-0.2); ABSOLUTE EOSINOPHILS 0.5 thou/uL (0.0-0.7); ABSOLUTE LYMPHOCYTES 1.7 thou/uL (0.8-5.3); ABSOLUTE MONOCYTES 1.2 thou/uL (0.0-1.2); ABSOLUTE NEUTROPHILS 12.3 thou/uL (1.6-8.1); BASOPHILS 1.3 %; EOSINOPHILS 3.2 %; HEMATOCRIT 30.7 % (42.0-52.0); HEMOGLOBIN 10.4 gm/dL (14.0-18.0); LYMPHOCYTES 10.6 %; MCH 27.2 pg (26.0-34.0); MCHC 33.9 g/dL (28.0-37.0); MONOCYTES 7.7 %; MPV 8.6 fl. (7.2-11.1); NUCLEATED RBCS 0 /100WBC; PLATELET COUNT* 449 thou/uL (150-400); POLYS 77.2 %; RBC 3.84 mil/uL (4.50-6.00); RDW-CV 15.6 % (10.5-14.5); WBC 15.9 thou/uL (4.0-11.0)
[2020-04-10 06:25] LABS: CALCIUM 8.1 mg/dL (8.5-10.1); CREATININE 1.5 mg/dL (0.6-1.3); POTASSIUM 4.3 mmol/L (3.5-5.1)
[2020-04-10] MEDS ORDERED: ACETAMINOPHEN325 M1 PO (06:26)
[2020-04-10] MEDS ORDERED: JUVEN PACKET1 EAC1 PO (06:27)
[2020-04-10] MEDS ORDERED: DIGESTIVE PROB250 MG PO (06:27)
[2020-04-10] MEDS ORDERED: CHOLESTYRAMINE P4 GM PO (06:28)
[2020-04-10] MEDS ORDERED: PREVALITE PACKET4 GM PO (06:28)
[2020-04-10] MEDS ORDERED: MYLANTA TONIGH355 ML PO (06:29)
[2020-04-10 06:35] LABS: ALBUMIN 2.3 g/dL (3.4-5.0); TOTAL BILIRUBIN 0.2 mg/dL (<0.1-1.0); TOTAL PROTEIN 7.2 g/dL (6.4-8.2)
[2020-04-10 06:36] LABS: INR 1.1; PROTIME 10.9 Seconds (9.20-11.50)
[2020-04-10 12:00] VITALS: BP 190/91
[2020-04-10 13:11] VITALS: BP 190/91
[2020-04-10 14:08] VITALS: BP 148/68
--- NOTE | 2020-04-10 17:12 | 2DMMODE ---
[place] [address] 2 D/M-MODE ECHOCARDIOGRAM Name: LINDA NETTLES Room: [address] [place]#: [id number] Admission: 04/10/20 Attend Phys: Cierra Dowd, Discharge: Date of : 44 Date of Service: 04/10/20 1712 Report #: [id number] THIS REPORT FOR: cc: Kumar Alcantar MD, Anthony MD Holkins,Quinten Daly MD [facility] ~ APPROVED REPORT Study performed: 04/10/2020 16:14:39 EXAM: Comprehensive 2D, Doppler, and color-flow Echocardiogram Patient Location: In-Patient Room #: [facility] Status: routine BSA: 2.33 HR: 82 bpm BP: 148/68 mmHg Rhythm: NSR Other Information Study Quality: Good Indications Chest Pain 2D Dimensions IVSd: 10.93 (7-11mm) LVOT Diam: 21.50 (18-24mm) LVDd: 55.66 mm PWd: 12.95 (7-11mm) Ascending Ao: 39.30 (22-36mm) LVDs: 49.53 (25-40mm) Aortic Root: 38.52 mm Volumes Left Atrial Volume (Systole) LA ESV Index: 31.40 mL/m2 Aortic Valve AoV Peak Jackson.: 1.11 m/s AO Peak Gr.: 4.90 mmHg LVOT Max P.47 mmHg AO Mean Gr.: 2.87 mmHg LVOT Mean P.71 mmHg LVOT Max V: 0.93 m/s AO V2 VTI: 25.67 cm LVOT Mean V: 0.60 m/s JEANA (VTI): 2.74 cm2 LVOT V1 VTI: 19.35 cm AI [place]: 2.43 m/s2 [place] [address] 2 D/M-MODE ECHOCARDIOGRAM Name: LINDA NETTLES Room: [address] M.R.#: [id number] Admission: 04/10/20 Attend Phys: Cierra Dowd, Discharge: Date of : 42 Date of Service: 04/10/20 1712 Report #: [id number] AI PHT: 417.51 ms Mitral Valve E/A Ratio: 0.81 MV Decel. Time: 196.83 ms MV E Max Jackson.: 0.77 m/s MV PHT: 57.08 ms MVA (PHT): 3.85 cm2 TDI E/Lateral E': 6.42 E/Medial E': 11.00 Medial E' Jackson.: 0.07 m/s Lateral E' Jackson.: 0.12 m/s Pulmonary Valve PV Peak Jackson.: 0.75 m/s PV Peak Gr.: 2.22 mmHg Tricuspid Valve RAP Estimate: 5.00 mmHg TR Peak Gr.: 18.51 mmHg RVSP: 23.00 mmHg PA Pressure: 23.00 mmHg Left Ventricle The left ventricle is normal size. There is normal LV segmental wall motion. There is normal left ventricular wall thickness. Left ventricular systolic function is borderline. LVEF is 50-55%. Grade I - abnormal relaxation pattern. Right Ventricle The right ventricle is normal size. The right ventricular systolic function is normal. Atria The left atrium size is normal. The right atrium size is normal. Aortic Valve History of aortic valve repair. Mild aortic valve sclerosis. Mild aortic regurgitation. There is no aortic valvular stenosis. Mitral Valve There is mitral annular calcification. Trace mitral regurgitation. No evidence of mitral valve stenosis. Tricuspid Valve The tricuspid valve is normal in structure[place] [address] 2 D/M-MODE ECHOCARDIOGRAM Name: LINDA NETTLES Room: [address]#: [id number] Admission: 04/10/20 Attend Phys: Cierra Dowd, Discharge: Date of : 44 Date of Service: 04/10/20 1712 Report #: [id number] regurgitation. Mild pulmonary hypertension. Pulmonic Valve The pulmonary valve is normal in structure. There is no pulmonic valvular regurgitation. Great Vessels The aortic root is normal in size. IVC is normal in size and collapses >50% with inspiration. Pericardium There is no pericardial effusion. <Conclusion> The left ventricle is normal size. There is normal left ventricular wall thickness. Left ventricular systolic function is borderline. LVEF is 50-55%. Grade I - abnormal relaxation pattern. The right ventricle is normal size. The left atrium size is normal. History of aortic valve repair. Mild aortic valve sclerosis. Mild aortic regurgitation. There is no aortic valvular stenosis. There is mitral annular calcification. Trace mitral regurgitation. The tricuspid valve is normal in structure. IVC is normal in size and collapses >50% with inspiration. There is no pericardial effusion. There is normal LV segmental wall motion. <ELECTRONICALLY SIGNED> By: Quinten Shaw MD, FACC 04/10/201711 11 11 Quinten Shaw MD, FACC /INF
[2020-04-10 21:00] VITALS: BP 142/86
[2020-04-11] VITALS (7 sets, daily range): BP systolic 102–165; BP diastolic 48–79
[2020-04-11 11:49] LABS: % SATURATION 11 % (20-39); IRON 18 ug/dL (50-175)
--- NOTE | 2020-04-11 14:40 | EKG ---
[place] [address] ELECTROCARDIOGRAM REPORT Name: LINDA NETTLES Room: [address]#: [id number] Admission: 04/10/20 Attend Phys: Cierra Dowd, Discharge: Date of : 44 Date of Service: 04/10/20 0559 Report #: [id number] THIS REPORT FOR: //name// [facility] ED Test Date: 2020-04-10 Test Time: 05:59:42 Pat Name: LINDA NETTLES Department: Room: [facility] Gender: M Dice Manager: PRIMO : 1940 Requested By: Cuca Martinez Order Number: [id number] MD: Quinten Shaw Measurements Intervals [place] Rate: 75 P: 52 TN: 223 QRS: 10 QRSD: 114 T: 44 QT: 438 QTc: 490 Interpretive Statements Sinus rhythm Prolonged TN interval Borderline intraventricular conduction delay Borderline prolonged QT interval Baseline wander in lead(s) II,III,aVR,aVF Compared to ECG 03/10/2020 12:30:36 First degree AV block now present Sinus tachycardia no longer present Myocardial infarct finding no longer present Electronically Signed On 04-11-2020 14:40:35 CDT by Quinten Shaw [email or web address] <ELECTRONICALLY SIGNED> By: Quinten Shaw MD, [facility] 04/11/20 1440 0559 0559 Quinten Shaw MD, [facility] /EPI
[2020-04-12] VITALS: BP 139/59
[2020-04-12 05:11] LABS: HEMATOCRIT 32.7 % (42.0-52.0); HEMOGLOBIN 10.3 gm/dL (14.0-18.0); MCH 25.7 pg (26.0-34.0); MCHC 31.6 g/dL (28.0-37.0); MCV 81.5 fL (80.0-100.0); MPV 8.7 fl. (7.2-11.1); RBC 4.01 mil/uL (4.50-6.00); RDW-CV 16.3 % (10.5-14.5)
[2020-04-12 05:42] LABS: ALBUMIN 2.3 g/dL (3.4-5.0); CALCIUM 8.5 mg/dL (8.5-10.1); CREATININE 1.5 mg/dL (0.6-1.3); POTASSIUM 4.3 mmol/L (3.5-5.1); TOTAL BILIRUBIN 0.3 mg/dL (<0.1-1.0); TOTAL PROTEIN 7.7 g/dL (6.4-8.2)
[2020-04-12 08:00] VITALS: BP 166/86
[2020-04-12 12:00] VITALS: BP 160/79
[2020-04-12 12:26] LABS: URINE BILIRUBIN NEGATIVE (Negative); URINE BLOOD NEGATIVE (Negative); URINE CLARITY CLEAR; URINE COLOR YELLOW; URINE GLUCOSE-RANDOM NEGATIVE (Negative); URINE KETONES TRACE (Negative); URINE LEUKOCYTES-REFLEX NEGATIVE (Negative); URINE NITRITE-REFLEX NEGATIVE (Negative); URINE PROTEIN TRACE (Negative); URINE UROBILINOGEN 0.2 E.U./dl (0.2-1.0)
[2020-04-12 16:00] VITALS: BP 151/70
[2020-04-12 20:15] VITALS: BP 148/61
[2020-04-13 03:55] LABS: HEMATOCRIT 28.9 % (42.0-52.0); HEMOGLOBIN 9.4 gm/dL (14.0-18.0); MCH 26.1 pg (26.0-34.0); MCHC 32.7 g/dL (28.0-37.0); MCV 79.9 fL (80.0-100.0); RBC 3.62 mil/uL (4.50-6.00); RDW-CV 15.7 % (10.5-14.5)
[2020-04-13 04:13] LABS: ALBUMIN 2.1 g/dL (3.4-5.0); CALCIUM 7.7 mg/dL (8.5-10.1); CREATININE 1.4 mg/dL (0.6-1.3); MAGNESIUM 1.8 mg/dL (1.8-2.4); POTASSIUM 4.5 mmol/L (3.5-5.1); TOTAL BILIRUBIN 0.4 mg/dL (<0.1-1.0); TOTAL PROTEIN 6.7 g/dL (6.4-8.2)
[2020-04-13 08:00] VITALS: BP 110/49
--- NOTE | 2020-04-13 15:07 | PATH ---
[address] [address] PATHOLOGY RPT PROCEDURE Name: LINDA NETTLES Room: [address] IN [facility].#: [id number] Admission: 04/12/20 Date of : 42 Discharge: Report #: [id number] Path Case #: [id number] [facility] Accession Number: [id number] . 01 Material submitted: . PART A: stomach - GASTRIC BIOPSY FOR H PYLORI PART B: esophagus - ESOPHAGEAL BIOPSY FOR ABEBE'S . 01 Clinical history: . CHEST PAIN . 02 Diagnosis: A. Gastric biopsy: - Mild nonspecific chronic gastritis, negative for Helicobacter pylori organisms and dysplasia. . B. 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 . (NAEL:roro; 04/13/2020) . Special stain on A: H. pylori immuno MBR 04/13/2020 1155 Local . 02 Electronically signed: . Rafiq Bess MD, Pathologist NPI- [id number] . 01 Gross description: . A. The specimen is received in formalin, labeled "Linda Nettles, gastric biopsy for H. pylori". Received is a segment of pale whitten soft tissue measuring 0.3 cm in maximum dimensions. The specimen is submitted entirely in cassette A1. . B. The specimen is received in formalin, labeled "Linda Glaserwler, esophageal biopsy, R/O Abebe's". Received are three segments of pale whitten soft tissue ranging in size from 0.5 to 0.6 cm in maximum dimensions. The specimen is submitted entirely in cassette B1. (CAA; 04/12/2020) QAC/QAC 04/12/2020 1016 Local . 02 Pathologist provided ICD-10: K29.50, K20.9 . 02 CPT . 740266, 215601, T85812 [place] [address] PATHOLOGY RPT PROCEDURE Name: LINDA NETTLES Room: [address]#: [id number] Admission: 04/12/20 Date of : 42 Discharge: Report #: [id number] Path Case #: [id number] Specimen Comment: A courtesy copy of this report has been sent to [phone] Specimen Comment: [phone], Specimen Comment: Report sent to ,DR OLIVA / DR MCNEAL Performed at: [address] [facility] [address], [place], [place] [id number] MD Frank Muro MD Phone: [phone] Performed at: [address] [facility] [address] [facility] , [place], [place] [id number] MD Rafiq Bess MD Phone: [phone]
[2020-04-13 20:26] VITALS: BP 110/61
[2020-04-14 06:48] LABS: HEMOGLOBIN 9.3 gm/dL (14.0-18.0); MCH 25.8 pg (26.0-34.0); MCHC 31.9 g/dL (28.0-37.0); MCV 80.8 fL (80.0-100.0); MPV 9.5 fl. (7.2-11.1); NUCLEATED RBCS 0 /100WBC; PLATELET COUNT* 421 thou/uL (150-400); RBC 3.59 mil/uL (4.50-6.00); RDW-CV 16.1 % (10.5-14.5); WBC 31.4 thou/uL (4.0-11.0)
[2020-04-14 07:01] LABS: CALCIUM 7.6 mg/dL (8.5-10.1); CREATININE 1.6 mg/dL (0.6-1.3); POTASSIUM 4.9 mmol/L (3.5-5.1); TOTAL BILIRUBIN 0.4 mg/dL (<0.1-1.0); TOTAL PROTEIN 6.2 g/dL (6.4-8.2)
[2020-04-14 07:27] LABS: ABSOLUTE LYMPHOCYTES 2.8 thou/uL (0.8-5.3); ABSOLUTE MONOCYTES 1.6 thou/uL (0.0-1.2); PLATELET ESTIMATE ADEQUATE
[2020-04-14 07:45] VITALS: BP 144/67
[2020-04-14 15:00] VITALS: BP 146/70
[2020-04-14 20:00] VITALS: BP 155/70
[2020-04-15 08:00] VITALS: BP 137/65
[2020-04-15 10:34] LABS: ABSOLUTE BASOPHILS 0.1 thou/uL (0.0-0.2); ABSOLUTE EOSINOPHILS 0.3 thou/uL (0.0-0.7); ABSOLUTE LYMPHOCYTES 2.1 thou/uL (0.8-5.3); ABSOLUTE NEUTROPHILS 16.3 thou/uL (1.6-8.1); BASOPHILS 0.7 %; EOSINOPHILS 1.3 %; HEMATOCRIT 25.8 % (42.0-52.0); HEMOGLOBIN 8.4 gm/dL (14.0-18.0); LYMPHOCYTES 9.9 %; MCHC 32.4 g/dL (28.0-37.0); MCV 80.3 fL (80.0-100.0); MONOCYTES 9.7 %; NUCLEATED RBCS 0 /100WBC; PLATELET COUNT* 386 thou/uL (150-400); POLYS 78.4 %; RBC 3.22 mil/uL (4.50-6.00); RDW-CV 15.9 % (10.5-14.5); WBC 20.8 thou/uL (4.0-11.0)
[2020-04-15 10:44] LABS: ALBUMIN 1.8 g/dL (3.4-5.0); CALCIUM 7.7 mg/dL (8.5-10.1); CREATININE 1.6 mg/dL (0.6-1.3); POTASSIUM 4.4 mmol/L (3.5-5.1); TOTAL BILIRUBIN 0.2 mg/dL (<0.1-1.0); TOTAL PROTEIN 5.9 g/dL (6.4-8.2)
[2020-04-15 21:00] VITALS: BP 119/54
[2020-04-16 04:00] VITALS: BP 138/70
[2020-04-16 04:38] LABS: ABSOLUTE BASOPHILS 0.2 thou/uL (0.0-0.2); ABSOLUTE EOSINOPHILS 0.6 thou/uL (0.0-0.7); ABSOLUTE MONOCYTES 1.9 thou/uL (0.0-1.2); ABSOLUTE NEUTROPHILS 12.3 thou/uL (1.6-8.1); BASOPHILS 0.9 %; EOSINOPHILS 3.5 %; HEMOGLOBIN 8.7 gm/dL (14.0-18.0); LYMPHOCYTES 11.8 %; MCH 26.6 pg (26.0-34.0); MCHC 33.4 g/dL (28.0-37.0); MCV 79.6 fL (80.0-100.0); MONOCYTES 11.4 %; MPV 9.2 fl. (7.2-11.1); NUCLEATED RBCS 0 /100WBC; PLATELET COUNT* 399 thou/uL (150-400); POLYS 72.4 %; RBC 3.27 mil/uL (4.50-6.00); RDW-CV 15.9 % (10.5-14.5); WBC 16.9 thou/uL (4.0-11.0)
[2020-04-16 05:00] LABS: PREALBUMIN 6.9 mg/dL (18.0-35.7)
[2020-04-16 05:09] LABS: ALBUMIN 1.7 g/dL (3.4-5.0); CALCIUM 7.5 mg/dL (8.5-10.1); CREATININE 1.6 mg/dL (0.6-1.3); POTASSIUM 4.2 mmol/L (3.5-5.1); TOTAL BILIRUBIN 0.3 mg/dL (<0.1-1.0); TOTAL PROTEIN 6.6 g/dL (6.4-8.2)
[2020-04-16 08:03] VITALS: BP 146/68
[2020-04-16 20:00] VITALS: BP 142/68
[2020-04-17 04:44] LABS: ABSOLUTE BASOPHILS 0.2 thou/uL (0.0-0.2); ABSOLUTE EOSINOPHILS 0.5 thou/uL (0.0-0.7); ABSOLUTE LYMPHOCYTES 1.6 thou/uL (0.8-5.3); ABSOLUTE MONOCYTES 1.6 thou/uL (0.0-1.2); ABSOLUTE NEUTROPHILS 11.1 thou/uL (1.6-8.1); BASOPHILS 1.2 %; EOSINOPHILS 3.3 %; HEMATOCRIT 25.1 % (42.0-52.0); HEMOGLOBIN 8.2 gm/dL (14.0-18.0); LYMPHOCYTES 10.7 %; MCH 25.7 pg (26.0-34.0); MCHC 32.6 g/dL (28.0-37.0); MONOCYTES 10.7 %; MPV 9.4 fl. (7.2-11.1); NUCLEATED RBCS 0 /100WBC; PLATELET COUNT* 396 thou/uL (150-400); POLYS 74.1 %; RBC 3.18 mil/uL (4.50-6.00); RDW-CV 15.6 % (10.5-14.5)
[2020-04-17 05:06] LABS: PREALBUMIN 5.5 mg/dL (18.0-35.7)
[2020-04-17 05:11] LABS: ALBUMIN 1.6 g/dL (3.4-5.0); CALCIUM 7.3 mg/dL (8.5-10.1); CREATININE 1.4 mg/dL (0.6-1.3); POTASSIUM 4.1 mmol/L (3.5-5.1); TOTAL BILIRUBIN 0.2 mg/dL (<0.1-1.0); TOTAL PROTEIN 6.2 g/dL (6.4-8.2)
[2020-04-17 09:08] VITALS: BP 139/70
[2020-04-17] MEDS ORDERED: INVANZ1 GM IVPB (11:24)
[2020-04-17] MEDS ORDERED: PROTONIX40 M1 PO (11:49)
[2020-04-17] MEDS ORDERED: CARAFATE 11 GM/10 M1 PO (11:49)
[2020-04-17] MEDS ORDERED: LASIX 20 MG TAB20 MG PO (12:03)
[2020-04-17] MEDS ORDERED: KLOR-CON 1010 MEQ PO (12:03)
[2020-04-17 19:40] VITALS: BP 146/58
[2020-04-18 05:50] VITALS: BP 102/69
[2020-04-18 07:20] VITALS: BP 135/60
[2020-04-18 21:30] VITALS: BP 148/70
[2020-04-19 04:29] LABS: ABSOLUTE EOSINOPHILS 0.6 thou/uL (0.0-0.7); ABSOLUTE LYMPHOCYTES 1.9 thou/uL (0.8-5.3); ABSOLUTE MONOCYTES 1.2 thou/uL (0.0-1.2); ABSOLUTE NEUTROPHILS 6.3 thou/uL (1.6-8.1); BASOPHILS 0.3 %; HEMATOCRIT 25.2 % (42.0-52.0); HEMOGLOBIN 8.4 gm/dL (14.0-18.0); LYMPHOCYTES 18.9 %; MCH 26.3 pg (26.0-34.0); MCHC 33.3 g/dL (28.0-37.0); MCV 79.1 fL (80.0-100.0); MONOCYTES 11.7 %; MPV 8.5 fl. (7.2-11.1); NUCLEATED RBCS 0 /100WBC; PLATELET COUNT* 443 thou/uL (150-400); POLYS 63.1 %; RBC 3.19 mil/uL (4.50-6.00)
[2020-04-19 04:52] LABS: ALBUMIN 1.7 g/dL (3.4-5.0); CALCIUM 7.9 mg/dL (8.5-10.1); CREATININE 1.5 mg/dL (0.6-1.3); POTASSIUM 4.3 mmol/L (3.5-5.1); TOTAL BILIRUBIN 0.2 mg/dL (<0.1-1.0); TOTAL PROTEIN 6.3 g/dL (6.4-8.2)
[2020-04-19 08:00] VITALS: BP 144/68
--- NOTE | 2020-04-19 13:08 | CON ---
[address] [address] CONSULTATION Name: NETTLESLINDA Waite Room: [address] IN .R.#: [id number] Admission: 04/12/20 Attend Phys: Cierra Dowd MD Discharge: Date of : 44 Report #: [id number] THIS REPORT FOR: //name// cc: Kumar Alcantar MD, Anthony MD ~ THIS REPORT FOR: //name// CC: Kumar Dowd DATE OF SERVICE: 04/12/2020 ADMISSION DIAGNOSIS: Chest pain. CHIEF COMPLAINT: As per HPI. HISTORY OF PRESENT ILLNESS: A 79-year-old male well known to me from prior left fifth ray resection for osteomyelitis. I have been following up with him at [facility]. He currently resides at a long term facility, but was admitted through the Emergency Department for chest pain 2 days ago. It is likely cholecystitis as the cause of his pain. He is currently on parenteral daptomycin, ceftriaxone, and oral Augmentin 875 mg b.i.d. Surgical pathology revealed clear margins. He denies foot pain. LABORATORY DATA: WBC 21.0, RBC 4.01, hemoglobin 10.3, hematocrit 32.7, platelets 435. BUN 21, creatinine 1.5, glucose 186. PHYSICAL EXAMINATION: EXTREMITIES: There is no inflammation or erythema to the left lateral foot. There are 2 postoperative surgical wounds, which are healing nicely with no palpable or visible bone. The wounds have mostly red granulation with some overlying yellowish slough. The foot is warm with no pallor or cyanosis. There is no underlying fluctuance or crepitation. Overall, the wounds appear smaller than at last outpatient visit. IMPRESSION: Status post left fifth ray resection for osteomyelitis with postoperative wound x 2. PLAN: An excisional ulcer debridement was performed with a scalpel and forceps to remove subcutaneous tissue and slough from the wound bed. This was an excisional wound debridement of the subcutaneous tissue. Scant bleeding was [facility] [address] [place] [address] CONSULTATION Name: LINDA NETTLES Room: [address] IN [facility].#: [id number] Admission: 04/12/20 Attend Phys: Cierra Dowd MD Discharge: Date of : 44 Report #: [id number] stopped with pressure. The wound was cleansed and dressed with Aquacel Ag, ABD, Kerlix, and Coban. <ELECTRONICALLY SIGNED> By: Jerad Jacques DPM 04/19/20 1308 1341 1412Dshanon Jacques DPM /nt
--- NOTE | 2020-04-19 13:08 | CON ---
[address] [address] CONSULTATION Name: NETTLESLINDA Mariann Room: [address] IN .R.#: [id number] Admission: 04/12/20 Attend Phys: Cierra Dowd MD Discharge: Date of : 44 Report #: [id number] THIS REPORT FOR: //name// cc: Kumar Alcantar MD, Anthony MD ~ THIS REPORT FOR: //name// CC: Kumar Dowd DATE OF SERVICE: 04/14/2020 CHIEF COMPLAINT: Followup of postoperative wound to the left lateral foot from prior fifth ray resection for osteomyelitis. He ambulates on the right foot for transfers and short distances. He is on parenteral daptomycin, ceftriaxone and oral Augmentin 875 mg b.i.d. He has likely cholecystitis. LABORATORY DATA: WBC 34.1, RBC 3.59, hemoglobin 9.3, hematocrit 29.0, platelets 421. BUN 22, creatinine 1.6, glucose 137, albumin 2.0. PHYSICAL EXAMINATION: Temperature 98.0, pulse 92, respirations 16, blood pressure 146/70. There is no inflammation to the left foot or cardinal signs of infection. The 2 postoperative wounds, one at the distal incision and one at the proximal aspect, have red granulation with some pale slough, but no exposed bone. There is no tunneling, no fluctuance/crepitation. The foot is warm with palpable pedal pulses and no pallor, cyanosis or signs of acute vascular embarrassment. IMPRESSION: Postoperative left foot wounds with prior resection of fifth ray for osteomyelitis, type 2 diabetes mellitus. PLAN: An excisional wound debridement was performed to the distal wound with forceps and scissors to remove subcutaneous tissue from the wound bed. Scant bleeding was stopped with pressure. The wound was cleansed. No debridement was performed to the proximal wound. Both wounds were covered with Aquacel Ag, covered with ABDs and Kerlix. I also dressed the right plantar foot wound overlying the fifth metatarsal styloid with no debridement to it. <ELECTRONICALLY SIGNED> By: Jerad Jacques DPM 04/19/20 1308 1746 2156Dajack Jacques DPM /nt
[2020-04-19 13:54] VITALS: BP 144/68
[2020-04-19 15:50] VITALS: BP 148/72
[2020-04-19 21:30] VITALS: BP 140/58
[2020-04-20 08:00] VITALS: BP 149/67
[2020-04-20 09:33] VITALS: BP 149/67
[2020-04-20] MEDS ORDERED: LIPITOR 10 MG10 M1 PO (14:51)
--- NOTE | 2020-04-22 16:22 | CON ---
[address] [address] CONSULTATION Name: LINDA NETTLES Room: [address] IN M.R.#: [id number] Admission: 04/12/20 Attend Phys: Cierra Dowd MD Discharge: 04/20/20 Date of : 44 Report #: [id number] THIS REPORT FOR: //name// cc: Kumar Alcantar MD, Anthony MD ~ THIS REPORT FOR: //name// CC: Kumar Dowd DICTATED BY: Lynn Mendoza [facility] DATE OF SERVICE: 04/11/2020 Please note at the time of this dictation, the patient was seen and physically examined by myself. HISTORY OF PRESENT ILLNESS: This is a 79-year-old male who presents to the Emergency Room with some epigastric pain, nausea, vomiting and some belching. He states he has been having issues with this for some time. He does take some Zofran p.r.n. sublingual under his tongue for his nausea, which helps with that. He has never had an upper or lower scope done and he denies taken any NSAIDs. The patient states that he has been noticing getting full quickly for many years. He states that because of his diabetes and his wound issues on his feet, he has been trying to lose weight, which has been unintentional that he is down 40 pounds. He states he is unable to eat what he used to eat. He is unable to finish most of his meals like he used to before. He is trying to drink some high protein shakes twice a day to help with his healing process of his wounds. He also has some issues with gas and bloating as well as belching. The patient states his bowels move usually once a day, soft and formed with no evidence of any bright red blood or melena. He states he is vomiting. Denies any bright red blood or any coffee ground emesis noted at this time. ALLERGIES: No known drug allergies. MEDICATIONS: From home include Amaryl, aspirin, carvedilol, Tylenol, probiotic, Ehsan packet, cholestyramine, Mylanta, rosuvastatin, Zofran, Mupirocin, Lantus, Humalog, Augmentin, duloxetine, daptomycin, hydrocodone. PAST MEDICAL HISTORY: Diabetes, peripheral vascular disease secondary to his diabetic neuropathy, heart disease. PAST SURGICAL HISTORY: He has had a CABG, right popliteal angioplasty [place] [address] CONSULTATION Name: LINDA NETTLES Room: [address]#: [id number] Admission: 04/12/20 Attend Phys: Cierra Dowd MD Discharge: 04/20/20 Date of : 44 Report #: [id number] FAMILY HISTORY: Negative. SOCIAL HISTORY: Lives with his . Denies any alcohol, tobacco or illegal drug use. REVIEW OF SYSTEMS: Twelve-point review of systems is essentially negative except what is mentioned in the HPI. PHYSICAL EXAMINATION: VITAL SIGNS: Temperature 37.6, pulse 91, respirations 18, blood pressure 102/69. HEART: Regular rate and rhythm. LUNGS: Clear. ABDOMEN: Soft, positive bowel sounds in all 4 quadrants with no masses or tenderness noted. LABORATORY DATA: Hemoglobin 10.4, white count 15.9, and platelets 449. PT 10.9 and INR 1.1. Lipase was normal. LFTs are normal. GFR is 46. CT shows diverticulosis and cholelithiasis. IMPRESSION: 1. Epigastric pain, improved. 2. Early satiety. 3. Nausea and vomiting, recurrent. 4. Gas bloating and belching, recurrent. 5. Anemia, question etiology. PLAN: 1. EGD today with Dr. Watt. 2. GET tomorrow 4 hours. 3. We will check iron studies, ferritin, and B12. 4. Further recommendations to be made after the above have all been performed. Thank you for allowing us to participate in this patient's care. Please do not hesitate to call with any questions in regard to this consult. Agree with above assessment and plan by Lynn Mendoza <ELECTRONICALLY SIGNED> By: Dev Watt MD 04/22/20 1622 [id number] Watt MD /nt
--- NOTE | 2020-04-26 13:03 | CON ---
[address] [address] CONSULTATION Name: LINDA NETTLES Room: [address] IN .R.#: [id number] Admission: 04/12/20 Attend Phys: Cierra Dowd MD Discharge: 04/20/20 Date of : 44 Report #: [id number] THIS REPORT FOR: //name// cc: Kumar Alcantar MD, Anthony MD ~ THIS REPORT FOR: //name// CC: Kumar Dowd DATE OF SERVICE: 04/19/2020 CHIEF COMPLAINT: Status post resection, left fifth ray for osteomyelitis with postoperative wound and concomitant wound to the right plantar fifth metatarsal styloid. He is on parenteral meropenem and daptomycin. He is status post drain placement for cholecystitis. LABORATORY DATA: WBC 10.0, RBC 3.19, hemoglobin 8.4, hematocrit 25.2, and platelets 443. BUN 19, creatinine 1.5, and glucose 86. Albumin 1.7. PHYSICAL EXAMINATION: Low-grade inflammation to the left lateral foot with 2 postoperative wounds. One wound is over prior fifth metatarsal styloid region and the other over the distal fifth metatarsal head region. He also has a wound to the right plantar fifth metatarsal styloid, which was not surgically resected. Both wounds have pale granulation with overlying yellowish whitten slough. Feet are warm with no pallor/cyanosis or signs of acute vascular embarrassment. IMPRESSION: Status post resection left fifth ray for osteomyelitis with postoperative wounds; wound to right plantar fifth metatarsal styloid. PLAN: Excisional ulcer debridement performed to both wounds to the left foot. I used scissors and forceps to excise subcutaneous tissue and slough from the wounds, which was an excisional debridement. Scant bleeding was stopped with pressure. The wounds were cleansed and dressed with Aquacel Ag, ABDs and Kerlix gauze. I similarly debrided the right wound and dressed as the same. Fresh gauze was applied. I will reorder postop shoes for ambulation. I will follow up with him next week at [facility]. Instructed to follow up with Dr. Marcus Schwarz, Infectious Disease, at his office on [facility]. <ELECTRONICALLY SIGNED> By: Jerad Jacques DPM 04/26/20 1303 1720 28Jerad Jacques DPM /ward
== END 2020-04-20 18:23 | disposition home or self-care (01) | DRG 356 ==
LOC: M.ERS 05:57 → M.TBA-ER 07:23 → M.2W 14:39 → M.3W 04-12 10:48 → M.2W 04-12 10:48 → M.3W 04-12 18:20
PROVIDERS: Internal Medicine; Nurse Practitioner Adult Health; Personal Emergency Response Attendant; Surgery; ADMIT Internal Medicine; ATTEND Internal Medicine
PROC: 0DB38ZX Excision of Lower Esophagus, Via Natural or Artificial Opening Endoscopic, Diagnostic (ICD-10-PCS; 2020-04-11)
PROC: 0DB68ZX Excision of Stomach, Via Natural or Artificial Opening Endoscopic, Diagnostic (ICD-10-PCS; 2020-04-11)
PROC: 0JBR0ZZ Excision of Left Foot Subcutaneous Tissue and Fascia, Open Approach (ICD-10-PCS; principal; 2020-04-12)
PROC: 02HV33Z Insertion of Infusion Device into Superior Vena Cava, Percutaneous Approach (ICD-10-PCS; principal; 2020-04-12)
PROC: 0JBR0ZZ Excision of Left Foot Subcutaneous Tissue and Fascia, Open Approach (ICD-10-PCS; 2020-04-14)
PROC: 0F9430Z Drainage of Gallbladder with Drainage Device, Percutaneous Approach (ICD-10-PCS; 2020-04-18)
PROC: 0JBQ0ZZ Excision of Right Foot Subcutaneous Tissue and Fascia, Open Approach (ICD-10-PCS; 2020-04-19)
PROC: 0JBR0ZZ Excision of Left Foot Subcutaneous Tissue and Fascia, Open Approach (ICD-10-PCS; 2020-04-19)
DX: K25.3 Acute gastric ulcer without hemorrhage or perforation (principal); R65.11 Systemic inflammatory response syndrome (SIRS) of non-infectious origin with acute organ dysfunction; K81.0 Acute cholecystitis; E44.1 Mild protein-calorie malnutrition; N17.9 Acute kidney failure, unspecified; I13.0 Hypertensive heart and chronic kidney disease with heart failure and stage 1 through stage 4 chronic kidney disease, or unspecified chronic kidney disease; F41.9 Anxiety disorder, unspecified; E11.40 Type 2 diabetes mellitus with diabetic neuropathy, unspecified; E11.51 Type 2 diabetes mellitus with diabetic peripheral angiopathy without gangrene; I87.8 Other specified disorders of veins; D64.9 Anemia, unspecified; R68.81 Early satiety; E78.5 Hyperlipidemia, unspecified; E11.621 Type 2 diabetes mellitus with foot ulcer; E66.9 Obesity, unspecified; K22.4 Dyskinesia of esophagus; I25.118 Atherosclerotic heart disease of native coronary artery with other forms of angina pectoris; D72.829 Elevated white blood cell count, unspecified; E11.43 Type 2 diabetes mellitus with diabetic autonomic (poly)neuropathy; K31.84 Gastroparesis; K22.70 Barrett's esophagus without dysplasia; I50.9 Heart failure, unspecified; N18.9 Chronic kidney disease, unspecified; E11.22 Type 2 diabetes mellitus with diabetic chronic kidney disease; K44.9 Diaphragmatic hernia without obstruction or gangrene; K26.9 Duodenal ulcer, unspecified as acute or chronic, without hemorrhage or perforation; L97.519 Non-pressure chronic ulcer of other part of right foot with unspecified severity; K21.0 Gastro-esophageal reflux disease with esophagitis; L97.529 Non-pressure chronic ulcer of other part of left foot with unspecified severity; Z20.828 Contact with and (suspected) exposure to other viral communicable diseases; Z95.4 Presence of other heart-valve replacement; Z79.84 Long term (current) use of oral hypoglycemic drugs; Z79.82 Long term (current) use of aspirin; Z79.899 Other long term (current) drug therapy; Z95.1 Presence of aortocoronary bypass graft; Z68.30 Body mass index [BMI] 30.0-30.9, adult

== ENCOUNTER → 2020-05-03 | Outpatient (CLI) | payer OTHER ==
[~2020-05-03] MED LIST changes: +ACETAMINOPHEN325 M1 PO; +CARAFATE 11 GM/10 M1 PO; +CHOLESTYRAMINE P4 GM PO; +DIGESTIVE PROB250 MG PO; +INVANZ1 GM IVPB; +JUVEN PACKET1 EAC1 PO; +KLOR-CON 1010 MEQ PO; +LASIX 20 MG TAB20 MG PO; +LIPITOR 10 MG10 M1 PO; +MYLANTA TONIGH355 ML PO; +PREVALITE PACKET4 GM PO; +PROTONIX40 M1 PO
== END ==
LOC: M.WC 03:39
PROVIDERS: ATTEND Podiatrist Foot & Ankle Surgery
DX: T81.89XD Other complications of procedures, not elsewhere classified, subsequent encounter (principal); E11.621 Type 2 diabetes mellitus with foot ulcer; L97.515 Non-pressure chronic ulcer of other part of right foot with muscle involvement without evidence of necrosis; L03.116 Cellulitis of left lower limb; I25.10 Atherosclerotic heart disease of native coronary artery without angina pectoris; Z79.4 Long term (current) use of insulin; Z79.82 Long term (current) use of aspirin; Y83.8 Other surgical procedures as the cause of abnormal reaction of the patient, or of later complication, without mention of misadventure at the time of the procedure

== ENCOUNTER → 2020-05-10 | Outpatient (CLI) | payer OTHER | LOC: M.WC 04:17 | PROVIDERS: ATTEND Surgery | DX: T81.89XA Other complications of procedures, not elsewhere classified, initial encounter (principal); E11.621 Type 2 diabetes mellitus with foot ulcer; L97.415 Non-pressure chronic ulcer of right heel and midfoot with muscle involvement without evidence of necrosis; L03.116 Cellulitis of left lower limb; E11.40 Type 2 diabetes mellitus with diabetic neuropathy, unspecified; E11.51 Type 2 diabetes mellitus with diabetic peripheral angiopathy without gangrene; E78.5 Hyperlipidemia, unspecified; I25.10 Atherosclerotic heart disease of native coronary artery without angina pectoris; I11.0 Hypertensive heart disease with heart failure; I50.9 Heart failure, unspecified; K21.9 Gastro-esophageal reflux disease without esophagitis; F41.9 Anxiety disorder, unspecified; F32.9 Major depressive disorder, single episode, unspecified; Z79.4 Long term (current) use of insulin; Y92.238 Other place in hospital as the place of occurrence of the external cause; Y83.8 Other surgical procedures as the cause of abnormal reaction of the patient, or of later complication, without mention of misadventure at the time of the procedure ==

== ENCOUNTER → 2020-05-17 | Outpatient (CLI) | payer OTHER | LOC: M.WC 04:56 | PROVIDERS: ATTEND Podiatrist Foot & Ankle Surgery | DX: T81.89XA Other complications of procedures, not elsewhere classified, initial encounter (principal); E11.621 Type 2 diabetes mellitus with foot ulcer; L97.415 Non-pressure chronic ulcer of right heel and midfoot with muscle involvement without evidence of necrosis; I25.10 Atherosclerotic heart disease of native coronary artery without angina pectoris; L03.116 Cellulitis of left lower limb; E11.40 Type 2 diabetes mellitus with diabetic neuropathy, unspecified; E11.69 Type 2 diabetes mellitus with other specified complication; M86.8X7 Other osteomyelitis, ankle and foot; E11.51 Type 2 diabetes mellitus with diabetic peripheral angiopathy without gangrene; E78.5 Hyperlipidemia, unspecified; I11.0 Hypertensive heart disease with heart failure; I50.9 Heart failure, unspecified; K21.9 Gastro-esophageal reflux disease without esophagitis; F32.9 Major depressive disorder, single episode, unspecified; F41.9 Anxiety disorder, unspecified; Z79.4 Long term (current) use of insulin; Z89.422 Acquired absence of other left toe(s); Y92.238 Other place in hospital as the place of occurrence of the external cause; Y83.8 Other surgical procedures as the cause of abnormal reaction of the patient, or of later complication, without mention of misadventure at the time of the procedure ==

== ENCOUNTER → 2020-05-19 | Outpatient (CLI) | payer OTHER ==
[~2020-05-19] VITALS: Ht 193 cm; Wt 107.0 kg
[2020-05-19 11:37] VITALS: BP 155/71
== END ==
LOC: M.INT 09:00
PROVIDERS: ATTEND Surgery
DX: K80.13 Calculus of gallbladder with acute and chronic cholecystitis with obstruction (principal); E11.9 Type 2 diabetes mellitus without complications; Z79.899 Other long term (current) drug therapy; Z98.890 Other specified postprocedural states

== ENCOUNTER → 2020-05-31 | Outpatient (CLI) | payer OTHER | LOC: M.WC 05-24 13:00 | PROVIDERS: ATTEND Podiatrist Foot & Ankle Surgery | DX: E11.621 Type 2 diabetes mellitus with foot ulcer (principal); L97.415 Non-pressure chronic ulcer of right heel and midfoot with muscle involvement without evidence of necrosis; L03.116 Cellulitis of left lower limb; E11.40 Type 2 diabetes mellitus with diabetic neuropathy, unspecified; E11.69 Type 2 diabetes mellitus with other specified complication; M86.072 Acute hematogenous osteomyelitis, left ankle and foot; I25.10 Atherosclerotic heart disease of native coronary artery without angina pectoris; I50.9 Heart failure, unspecified; K21.9 Gastro-esophageal reflux disease without esophagitis; F32.9 Major depressive disorder, single episode, unspecified; Y83.5 Amputation of limb(s) as the cause of abnormal reaction of the patient, or of later complication, without mention of misadventure at the time of the procedure ==

== ENCOUNTER → 2020-06-14 | Outpatient (CLI) | payer OTHER | LOC: M.WC 08:59 | PROVIDERS: ATTEND Podiatrist Foot & Ankle Surgery | DX: T81.89XD Other complications of procedures, not elsewhere classified, subsequent encounter (principal); E11.621 Type 2 diabetes mellitus with foot ulcer; L97.412 Non-pressure chronic ulcer of right heel and midfoot with fat layer exposed; L03.116 Cellulitis of left lower limb; L84 Corns and callosities; E11.69 Type 2 diabetes mellitus with other specified complication; M86.072 Acute hematogenous osteomyelitis, left ankle and foot; E11.40 Type 2 diabetes mellitus with diabetic neuropathy, unspecified; I25.10 Atherosclerotic heart disease of native coronary artery without angina pectoris; I50.9 Heart failure, unspecified; K21.9 Gastro-esophageal reflux disease without esophagitis; F32.9 Major depressive disorder, single episode, unspecified; Y83.8 Other surgical procedures as the cause of abnormal reaction of the patient, or of later complication, without mention of misadventure at the time of the procedure ==

== ENCOUNTER → 2020-06-28 | Outpatient (CLI) | payer OTHER ==
[2020-06-28 14:05] LABS: ABSOLUTE BASOPHILS 0.1 thou/uL (0.0-0.2); ABSOLUTE EOSINOPHILS 0.1 thou/uL (0.0-0.7); ABSOLUTE LYMPHOCYTES 1.3 thou/uL (0.8-5.3); ABSOLUTE MONOCYTES 1.6 thou/uL (0.0-1.2); ABSOLUTE NEUTROPHILS 12.8 thou/uL (1.6-8.1); BASOPHILS 0.8 %; EOSINOPHILS 0.6 %; HEMOGLOBIN 9.9 gm/dL (14.0-18.0); LYMPHOCYTES 8.1 %; MCH 24.2 pg (26.0-34.0); MCHC 29.9 g/dL (28.0-37.0); MCV 80.8 fL (80.0-100.0); MONOCYTES 10.3 %; NUCLEATED RBCS 0 /100WBC; PLATELET COUNT* 571 thou/uL (150-400); POLYS 80.2 %; RBC 4.09 mil/uL (4.50-6.00); WBC 15.9 thou/uL (4.0-11.0)
[2020-06-28 14:08] LABS: CALCIUM 8.8 mg/dL (8.5-10.1); CREATININE 1.5 mg/dL (0.6-1.3); POTASSIUM 4.3 mmol/L (3.5-5.1)
[2020-06-29 02:06] LABS: GLYCOHEMOGLOBIN (HGB A1C) 7.6 % (4.8-5.6)
== END ==
LOC: M.WC 08:11
PROVIDERS: ATTEND Podiatrist Foot & Ankle Surgery
DX: T87.89 Other complications of amputation stump (principal); E11.621 Type 2 diabetes mellitus with foot ulcer; L97.415 Non-pressure chronic ulcer of right heel and midfoot with muscle involvement without evidence of necrosis; L03.116 Cellulitis of left lower limb; L84 Corns and callosities; E11.69 Type 2 diabetes mellitus with other specified complication; M86.072 Acute hematogenous osteomyelitis, left ankle and foot; E11.42 Type 2 diabetes mellitus with diabetic polyneuropathy; I25.10 Atherosclerotic heart disease of native coronary artery without angina pectoris; I50.9 Heart failure, unspecified; K21.9 Gastro-esophageal reflux disease without esophagitis; F32.9 Major depressive disorder, single episode, unspecified; Y83.5 Amputation of limb(s) as the cause of abnormal reaction of the patient, or of later complication, without mention of misadventure at the time of the procedure

== ENCOUNTER → 2020-07-05 | Outpatient (CLI) | payer OTHER | LOC: M.WC 13:00 | PROVIDERS: ATTEND Podiatrist Foot & Ankle Surgery | DX: T87.89 Other complications of amputation stump (principal); E11.621 Type 2 diabetes mellitus with foot ulcer; L97.415 Non-pressure chronic ulcer of right heel and midfoot with muscle involvement without evidence of necrosis; L03.116 Cellulitis of left lower limb; L84 Corns and callosities; E11.69 Type 2 diabetes mellitus with other specified complication; M86.072 Acute hematogenous osteomyelitis, left ankle and foot; E11.42 Type 2 diabetes mellitus with diabetic polyneuropathy; I25.10 Atherosclerotic heart disease of native coronary artery without angina pectoris; I50.9 Heart failure, unspecified; K21.9 Gastro-esophageal reflux disease without esophagitis; F32.9 Major depressive disorder, single episode, unspecified; Y83.5 Amputation of limb(s) as the cause of abnormal reaction of the patient, or of later complication, without mention of misadventure at the time of the procedure ==